=== PATIENT | male | born 1975 | race Caucasian/White ===

== ENCOUNTER 2017-01-19 13:45 | Emergency (ER) | payer BC ==
[2017-01-19] MEDS ORDERED: Aspirin Low Dose CHEW TAB* 81 MG PO ONE (14:59)
--- NOTE | 2017-01-19 15:10 | ED ---
HPI Chest Pain - HPI Summary HPI Summary: 41 yo M presents by private car to ED for chest pain that started at rest at work today at approx 10 or 11am. 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 States the pain feels like "burning", "like a coal" in his chest. He felt a little dizzy with the pain, felt "strange", a little SOB. + nausea, no V, no diaphoresis. Pt states he is "super stressed" at home and work (has a 3 mo old daughter, first child and he and his are very stressed with this). Saw his PCP for anxiety and stress last week. Pt states he is still in pain now. Pain does not radiate. Rates it a "4". States it feels different than his usual reflux. States he also had a "buzzing" sensation in his chest that is now resolved. Cardiac risk factors: former smoker (on chantix now), neg HTN, neg DM, does not know his lipid status, no CAD in parents. Meds Wellbutrin, protonix and chantix. PMH: depression, GERD PSH hernia, wisdom teeth; Fam hx both parents alive and well. Mother with mental illnes, father with depression. Marjorie Tovar NP is his PCP. - History of Current Complaint Chief Complaint: EDChestPainROMI Time Seen by Provider: 01/19/17 14:39 Hx Obtained From: Patient Onset/Duration: Started Hours Ago, Atraumatic, Still Present Time of Onset: 10:00 Timing: Constant Initial Severity: Moderate Current Severity: Moderate Pain Intensity: 3 Pain Scale Used: 0-10 Numeric Chest Pain Location: Discrete at:, Mid Sternal Chest Pain Radiates: No Character: Burning Aggravating Factor(s): Nothing Alleviating Factor(s): Nothing Associated Signs and Symptoms: Positive: Shortness of Breath, Palpitations - buzzing sensation, Other: - nausea. Negative: Vomiting - Risk Factors AMI/ACS Risk Factors: Smoking - former, on Chantix now - Allergy/Home Medications Allergies/Adverse Reactions: Allergies Allergy/AdvReac Type Severity Reaction Status Date / Time No Known Allergies Allergy Verified 03/03/13 12:26 Home Medications: Home Medications Bupropion XL* [Wellbutrin XL *] 150 mg PO DAILY 01/19/17 [History Confirmed 01/26] Pantoprazole TAB (NF) [Protonix TAB (NF)] 40 mg PO DAILY 01/19/17 [History Confirmed 01/19/17] PMH/Surg Hx/FS Hx/Imm Hx Previously Healthy: No Endocrine/Hematology History: Denies: Hx Diabetes, Hx Systemic Lupus Erythematosus Cardiovascular History: Denies: Hx Congestive Heart Failure, Hx Hypertension GI History: Reports: Hx Gastroesophageal Reflux Disease, Other GI Disorders - reflux History: Denies: Hx Dialysis, Hx Renal Disease Musculoskeletal History: Denies: Hx Rheumatoid Arthritis Neurological History: Reports: Other Neuro Impairments/Disorders - restless leg syndrome Psychiatric History: Reports: Hx Depression - Cancer History Hx Chemotherapy: No - Surgical History Surgery Procedure, Year, and Place: tooth extraction one year ago in 2011; wisdom teeth (all 4) removed 15 years ago in 1995; hernia as a "baby". 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 Negative: Cough Positive: Nausea Musculoskeletal: Negative Skin: Negative Neurological: Negative Psychological: Normal All Other Systems Reviewed And Are Negative: Yes Physical Exam Triage Information Reviewed: Yes Vital Signs On Initial Exam: Initial Vitals Temp Pulse Resp BP Pulse Ox 98.1 F 85 20 134/92 99 01/19/17 14:34 01/19/17 14:34 01/19/17 14:34 01/19/17 14:34 01/19/17 14:34 Vital Signs Reviewed: Yes Appearance: Positive: Well-Nourished, Ill-Appearing - mild, Pain Distress Skin: Positive: Warm, Skin Color Reflects Adequate Perfusion, Diaphoretic Head/Face: Positive: Normal Head/Face Inspection Eyes: Positive: EOMI, Conjunctiva Clear ENT: Positive: Normal ENT inspection Neck: Positive: Supple, Nontender, No Lymphadenopathy Respiratory/Lung Sounds: Positive: Clear to Auscultation, Breath Sounds Present , Other - no resp distress Cardiovascular: Positive: RRR, Pulses are Symmetrical in both Upper and Lower Extremities, S1, S2. Negative: Leg Edema Left, Leg Edema Right Abdomen Description: Positive: Nontender, No Organomegaly, Soft. Negative: Bruit, Distended, Guarding, Hepatomegaly, McBurney's Point Tenderness, Peritoneal Signs, Pulsatile Mass, Splenomegaly Bowel Sounds: Positive: Present Musculoskeletal: Positive: Strength/ROM Intact. Negative: Geraldo Sign Left, Geraldo Sign Right, Edema Left, Edema Right Neurological: Positive: Sensory/Motor Intact, Alert, Oriented to Person Place, Time, Facial Symmetry, Speech Normal Diagnostics - Vital Signs Vital Signs Temp Pulse Resp BP Pulse Ox 01/19/17 14:34 98.1 F 85 20 134/92 99 - Laboratory Result Diagrams: 01/19/17 15:20 01/19/17 15:20 Lab Statement: Any lab studies that have been ordered have been reviewed, and results considered in the medical decision making process. - Radiology chest xray Xray Interpretation: No Acute Changes Radiology Interpretation Completed By: Radiologist - EKG 1420 Cardiac Rate: NL EKG Rhythm: Sinus Rhythm ST Segment: Normal Ectopy: None EKG Comparison: No Significant Change Re-Evaluation - Re-Evaluation First Eval Re-Evaluation Time: 17:50 - no chest pain, not diaphoretic. labs pending Change: Improved Chest Pain Course/Dx - Course Course Of Treatment: EKG: taken at 14:20pm, SR 61, nl AVIVCT, nl QTc, nl axis, no acute changes. No significant change c/w 12/27/09. CXR NAD. - Chest Pain Differential Diagnosis/HQI/PQRI: Acute ID, ACS, Angina, Chest Wall, GI Disease, Pulmonary Embolism - Diagnoses Provider Diagnoses: Chest pain, Elevated BP without diagnosis of hypertension Discharge - Discharge Plan Condition: Stable Disposition: OTHER Discharge Disposition Comment: care to Dr. Johnson at change of shift 1700, 01/19 Referrals: Marjorie Tovar NP [Primary Care Provider] -
--- NOTE | 2017-01-19 15:52 | RAD ---
Indication: Chest pain. 2 views of the chest including dual energy PA views demonstrate no mediastinal shift. Heart is of normal size and configuration. Lungs are clear. IMPRESSION: NO ACTIVE CARDIOPULMONARY DISEASE IS NOTED.
[2017-01-19 16:57] LABS: Hematocrit 47 % (42-52); Hemoglobin 16.2 g/dl (14.0-18.0); Mean Corpuscular HGB Conc 34 g/dl (31-36); Mean Corpuscular Hemoglobin 30 pg (27-31); Mean Corpuscular Volume 87 fL (80-94); Mean Platelet Volume 8 um3 (7.4-10.4); Red Blood Count 5.41 10^6/ul (4.0-5.4); Red Cell Distribution Width 13 % (10.5-15); White Blood Count 7.2 10^3/ul (3.5-10.8)
[2017-01-19 17:12] LABS: Albumin 4.3 g/dL (3.2-5.2); BUN/Creatinine Ratio 12.2 (8-20); Calcium 9.2 mg/dL (8.6-10.3); EGFR African American 108.9 (>60); EGFR Non-African American 84.7 (>60); Globulin 2.9 g/dL (2-4); Potassium 3.6 mmol/L (3.5-5.0); Total Bilirubin 0.7 mg/dL (0.2-1.0); Total Protein 7.2 g/dL (6.4-8.9)
[2017-01-19 19:17] VITALS: BP 118/81
--- NOTE | 2017-01-22 12:21 | ED ---
Anette Sparrow Thomas, scribed for Nadeem Johnson MD on 01/19/17 at 1844 . Progress - Progress Note Progress Note: The patient is a sign out from Dr. Langston. The patient is free of chest pain at time of my evaluation. He is diagnosed with anxiety and chest pain, unspecified. He was instructed follow up with cardiology in 2-3 days as well as his primary care provider. Patient is stable. [place] is ruled out by two negative troponins. Course/Dx - Diagnoses Provider Diagnoses: Chest pain, unspecified, Anxiety The documentation as recorded by the Anette decker Thomas accurately reflects the service I personally performed and the decisions made by me, Nadeem Johnson MD.
== END 2017-01-19 19:17 ==
LOC: ED 13:45
DX: R07.9 Chest pain, unspecified (principal); R03.0 Elevated blood-pressure reading, without diagnosis of hypertension; F41.9 Anxiety disorder, unspecified; R06.02 Shortness of breath; R00.2 Palpitations; Z87.891 Personal history of nicotine dependence
CPT/HCPCS: 36415; 71020; 80053; 82550; 82553; 83880; 84484; 85025; 85379; 85610; 85730; 93005; 99283; A9270-GY

== ENCOUNTER 2018-10-07 19:13 | Emergency (ER) | payer BC ==
--- OUTSIDE RECORDS SUMMARY | 2018-10-07 19:36 | XMS REPORT | Continuity of Care Document ---
:1975 External Reference #:[id number] Author Name Shelby Wilkerson M.D. Address [address] [facility] [place] [address] Care Team Providers Name Role Phone Shelby Wilkerson M.D. 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 Primary Care Physician Unavailable Payers Date Identification Numbers Payment Provider Subscriber Effective: 2018 Policy Number: [id number] BC/BS Of EMILY Carolina Alverto PayID: [id number] [address] [address] [place] [address] Problems Active Problems Provider Date Generalized anxiety disorder RENEE eNlson Onset: 10/04/2018 Family History Date Family Member(s) Observation Comments Maternal Grandmother breast cancer Social History Type Date Description Comments Sex Unknown Education Highest level of education completed is a doctorate Living Situation Lives with spouse and daughter Diet Diet is healthy and well balanced Sleep Reports normal sleep activity Pets There are no pets in the home 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 Tobacco Use Start: Unknown Former Cigarette Smoker \\ End: Unknown Smoking Status Reviewed: 10/04/18 Former Cigarette Smoker \\ ETOH Use Social Alcohol ETOH Use Occasional 2-3x week; was up to 4x a night Recreational Drug Use Marijuana Exercise Type/Frequency Exercises sporadically Current Allergies, Adverse Reactions, Alerts Active Allergies Reaction Severity Comments Date NKDA 08/21/2010 Seasonal 08/21/2010 Medications Active Medications SIG Qnty Indications Ordering Provider Date Duloxetine HCL 2 by mouth 60caps F41.1 Danuta Curtis, 07/15/2018 30mg Caps every day Afsusan-Lynette Cherry F34.1 Clonazepam 1 by mouth twice a 45tabs F41.1 RENEE Nelson 02/12/2017 0.5mg Tablets day as needed for anxiety History Medications Proair HFA 2 puffs every 4 8.500gm Marjorie Tovar, 04/11/2018 - hours as needed [facility] 07/14/2018 108(90Base) mcg/Act Aerosol Venlafaxine HCL ER take 3 capsules 90caps F41.1 Marjorie Tovar, 12/06/2017 - daily (maximum [facility] 07/11/2018 37.5mg Caps ER 24HR daily dose 3) F34.1 Pantoprazole Sodium take 1 tablet 30tabs K21.9 Marjorie Tovar, 12/06/2017 - 20mg every day [facility] 10/04/[address] Mclean Continuing take 1 tablet by 30tabs F17.228 Trisha Vieira 11/04/2017 - Month Hugo mouth twice a SUSAN Cortez 07/14/2018 1mg Tablets day Vinay Starting Month starter pack; 1pack F17.228 Trisha Vieira 11/04/2017 - Hugo use according to SUSAN Cortez 11/04/2017 0.5mg X 11 & 1 mg X packaging label 42 Tablets Acetaminophen-Codeine take one by 20tabs J06.9 Trisha Vieira 11/04/2017 - #3 mouth every 6 SUSAN Cortez 07/14/2018 300-30mg Tablets hours as needed for cough. may take 2 as one dose at bedtime. Benzonatate take one by 30caps J06.9 Trisha Vieira 11/04/2017 - 200mg mouth 3 times SUSAN Cortez 07/14/2018 Capsules daily as needed for cough Ventolin HFA take 1-2 puffs 8gm J06.9 Trisha Vieira 11/04/2017 - 108(90Base) inhaled every 4 SUSAN Cortez 07/14/2018 mcg/Act Aerosol hours as needed for wheezing or tightness in the chest Venlafaxine HCL ER 1 by mouth every 30tabs Marjorie Tovar, 04/14/2017 - 150mg day [facility] 12/06/2017 Tablets ER 24HR Desvenlafaxine 1 by mouth every 90tabs F34.1 Marjorie Tovar, 02/12/2017 - Succinate ER day [facility] 04/14/2017 50mg Tablets ER 24HR F41.1 Bupropion HCL ER 1 by mouth 30tabs F41.1 Marjorie Tovar, [facility] 01/15/2017 - (XL) every day 02/12/2017 150mg Tablets ER 24HR F34.1 Chantix Continuing take 1 tablet by 60tabs F17.220 Shelby Wilkerson, 2015 - Month Hugo mouth twice a M.D. 06/04/2016 1mg Tablets day Chantix Starter Pack use as directed 1Month F17.220 Marjorie Tovar, 2014 - [facility] 07/08/2015 Chantix Starter Pack use as directed 1Month 305.1 Marjorie Tovar, 2014 - [facility] 03/04/2015 Azithromycin take 2 tablets 6tabs 786.2 Marjorie Tovar, 07/24/2013 - 250mg by mouth today [facility] 03/04/2015 Tablets then take 1 tablet daily for next 4 days Shara moncada 1-2 tsp q 4h prn 8oz 786.2 Marjorie Tovar, 07/24/2013 - cough [facility] 03/04/2015 100-10mg/5ML Syrup Pantoprazole Sodium take 1 tablet by 30tabs K21.9 Marjorie Tovar, 2012 - mouth once daily [facility] 12/06/2017 40mg Tablets Tizanidine HCL 1 po q hs 30caps 847.1 Marjorie Tovar, 11/30/2012 - 4mg [facility] 07/24/2013 Capsules Lidoderm use on painful 30units 847.1 Marjorie Tovar, 11/30/2012 - 5% Patches area(s) q [facility] 07/24/2013 12hours prn Chantix Starter Pack use as directed 1Month 305.1 Marjorie Tovar, 2012 - [facility] 07/24/2013 Montelukast Sodium take 1 tablet by 30tabs Marjorie Tovar, 08/24/2012 - mouth once daily [facility] 03/04/2015 10mg Tablets Azithromycin take 2 tablets 13tabs 461.0 Marjorie Tovar, 06/15/2012 - 250mg by mouth x 3d [facility] 11/30/2012 Tablets then take 1 tablet daily for next 7days Protonix 1 po qd may fill 30tabs 530.81 Marjorie Tovar, 06/15/2012 - 40mg Tablets with generic [facility] 03/03/2013 DR Guiatuss ac 1-2 tsp q 4h prn 8oz 461.0 Marjorie Tovar, 06/15/2012 - cough [facility] 11/30/2012 100-10mg/5ML Syrup Wellbutrin XL 1 po qd 30units 300.00 Marjorie Tovar, 02/22/2012 - 300mg [facility] 02/23/2012 311 Singulair 1 po qd 30tabs 477.[address] [facility] 02/22/2012 - 10mg Tablets 06/15/2012 Citalopram 1 po qd 30tabs 300.[address] [facility] 02/22/2012 - Hydrobromide 06/15/2012 20mg Tablets Bupropion HCL XL 1 po qd 30tabs 300.[address] [facility] 02/22/2012 - 150mg 06/15/2012 Tablets ER 24HR Flexeril 1 po tid prn 30tabs 848.8 [facility], 09/02/2011 - 10mg Tablets np-C 09/09/2011 Wellbutrin XL 1 po qd 30units 300.00 [facility], 08/19/2011 - 300mg np-C 02/22/2012 311 Note Josemanuel has no RENEE Nelson 11/18/2010 - chronic or acute 08/19/2011 illness and is medically fit to scuba dive Xanax 1-2 by mouth tabs 60tabs F41.[address] [facility] 09/11/2010 - 0.25mg by mouth twice a 11/04/2017 Tablets day as needed Zoloft 300.00 CARMELA NelsonP 08/21/2010 - 08/19/2011 311 Chantix Starter use as directed 1Month 305.1 RENEE Nelson 08/21/2010 - Pack 08/19/2011 Bactroban apply tid to 30mg 478.11 RENEE Nelson 08/21/2010 - 2% affected area for 08/19/2011 Ointment 3-5d Immunizations CPT Code Status Date Vaccine Lot # [id number] Given 03/16/2018 Influenza Vac, Quadrivalent, Slit Virus, Im Vital Signs Date Vital Result Comment 10/04/2018 3:58pm BP Systolic 120 mmHg BP Diastolic 80 mmHg Heart Rate 80 /min Respiratory Rate 15 /min Height 70 inches 5'10" Weight 169.00 lb BMI (Body Mass Index) 24.2 kg/m2 07/15/2018 1:36pm BP Systolic 114 mmHg BP Diastolic 60 mmHg Heart Rate 90 /min Body Temperature 98.1 F Respiratory Rate 16 /min Height 70 inches 5'10" Weight 186.12 lb BMI (Body Mass Index) 26.7 kg/m2 12/06/2017 9:10am BP Systolic 110 mmHg BP Diastolic 68 mmHg Heart Rate 70 /min Body Temperature 98.7 F Respiratory Rate 16 /min Height 70 inches 5'10" Weight 177.38 lb BMI (Body Mass Index) 25.4 kg/m2 11/04/2017 11:40am BP Systolic 120 mmHg BP Diastolic 62 mmHg Heart Rate 70 /min Body Temperature 97.6 F Respiratory Rate 16 /min Height 70 inches 5'10" Weight 177.12 lb BMI (Body Mass Index) 25.4 kg/m2 02/12/2017 4:25pm BP Systolic 110 mmHg BP Diastolic 70 mmHg Heart Rate 68 /min Body Temperature 98.1 F Respiratory Rate 18 /min Height 70 inches 5'10" Weight 189.00 lb BMI (Body Mass Index) 27.1 kg/m2 01/15/2017 1:39pm BP Systolic 110 mmHg BP Diastolic 72 mmHg Heart Rate 60 /min Body Temperature 97.8 F Respiratory Rate 16 /min Height 70 inches 5'10" Weight 187.50 lb BMI (Body Mass Index) 26.9 kg/m2 06/04/2016 12:02pm BP Systolic 120 mmHg BP Diastolic 80 mmHg Heart Rate 68 /min Body Temperature 98.1 F Respiratory Rate 18 /min Weight 192.00 lb 03/04/2015 7:48pm BP Systolic 120 mmHg BP Diastolic 88 mmHg Heart Rate 72 /min Body Temperature 98.6 F Respiratory Rate 18 /min Height 70 inches 5'10" Weight 188.00 lb BMI (Body Mass Index) 27.0 kg/m2 07/24/2013 7:21pm BP Systolic 110 mmHg BP Diastolic 70 mmHg Heart Rate 68 /min Body Temperature 98.3 F Respiratory Rate 18 /min Height 70 inches 5'10" Weight 195.00 lb BMI (Body Mass Index) 28.0 kg/m2 11/30/2012 1:55pm BP Systolic 118 mmHg BP Diastolic 66 mmHg Heart Rate 74 /min Body Temperature 98.0 F Respiratory Rate 18 /min Height 70 inches 5'10" Weight 180.00 lb BMI (Body Mass Index) 25.8 kg/m2 06/15/2012 2:56pm BP Systolic 112 mmHg BP Diastolic 60 mmHg Heart Rate 90 /min Body Temperature 97.7 F Respiratory Rate 16 /min O2 % BldC Oximetry 97 % Height 70 inches 5'10" Weight 193.00 lb BMI (Body Mass Index) 27.7 kg/m2 02/22/2012 7:49pm BP Systolic 110 mmHg BP Diastolic 80 mmHg Heart Rate 68 /min Body Temperature 98.2 F Height 70 inches 5'10" Weight 188.00 lb BMI (Body Mass Index) 27.0 kg/m2 09/02/2011 3:49pm BP Systolic 120 mmHg BP Diastolic 74 mmHg Heart Rate 84 /min Height 70 inches 5'10" Weight 190.00 lb BMI (Body Mass Index) 27.3 kg/m2 08/19/2011 11:02am BP Systolic 120 mmHg BP Diastolic 80 mmHg Heart Rate 64 /min Height 70 inches 5'10" Weight 188.00 lb BMI (Body Mass Index) 27.0 kg/m2 10/08/2010 9:06am BP Systolic 110 mmHg BP Diastolic 70 mmHg Heart Rate 60 /min Body Temperature 98.1 F Height 70 inches 5'10" Weight 185.00 lb BMI (Body Mass Index) 26.5 kg/m2 09/11/2010 9:07am BP Systolic 100 mmHg BP Diastolic 60 mmHg Heart Rate 76 /min Height 70 inches 5'10" Weight 182.00 lb BMI (Body Mass Index) 26.1 kg/m2 08/21/2010 12:49pm BP Systolic 110 mmHg BP Diastolic 78 mmHg Heart Rate 78 /min Body Temperature 98.8 F Respiratory Rate 18 /min Height 70 inches 5'10" Weight 185.00 lb BMI (Body Mass Index) 26.5 kg/m2 Results Test Date Facility Test Result H/L Range Note Laboratory test 01/19/2017 [facility] [place] Troponin I 0.00 ng/mL N <0.04 finding Laboratory test 01/19/2017 [facility] [place] B-Type Natriuretic 11 pg/mL N 1 finding Peptide BNP Creatine Kinase(CK) 73 U/L N 10-223 CBC Auto Diff 01/19/2017 [facility] [place] White Blood Count 7.2 10^3/uL N 3.5-10.8 Red Blood Count 5.41 10^6/uL High 4.0-5.4 Hemoglobin 16.2 g/dL N 14.0-18.0 Hematocrit 47 % N 42-52 Mean Corpuscular Volume 87 fL N 80-94 Mean Corpuscular Hemoglobin 30 pg N 27-31 Mean Corpuscular HGB Conc 34 g/dL N 31-36 Red Cell Distribution Width 13 % N 10.5-15 Platelet Count 242 10^3/uL N 150-450 Mean Platelet Volume 8 um3 N 7.4-10.4 Abs Neutrophils 4.4 10^3/uL N 1.5-7.7 Abs Lymphocytes 1.9 10^3/uL N 1.0-4.8 Abs Monocytes 0.7 10^3/uL N 0-0.8 Abs Eosinophils 0 10^3/uL N 0-0.6 Abs Basophils 0.1 10^3/uL N 0-0.2 Abs Nucleated RBC 0.01 10^3/uL N Granulocyte % 61.3 % N 38-83 Lymphocyte % 26.8 % N 25-47 Monocyte % 10.0 % High 1-9 Eosinophil % 0.7 % N 0-6 Basophil % 1.2 % N 0-2 Nucleated Red Blood Cells % 0.1 N Inr/Protime 01/19/2017 [facility] [place] Inr 0.93 N 0.89-1.11 Laboratory test finding 01/19/2017 [facility] [place] Partial Thrombo 31.6 seconds N 26.0-36.3 Time PTT D Dimer Quantitative < 200 ng/mL N Less Than 230 2 Comp Metabolic Panel 01/19/2017 [facility] [place] Sodium 137 mmol/L N 133-145 Potassium 3.6 mmol/L N 3.5-5.0 Chloride 104 mmol/L N 101-111 Co2 Carbon Dioxide 24 mmol/L N 22-32 Anion Gap 9 mmol/L N 2-11 Glucose 97 mg/dL N 70-100 Blood Urea Nitrogen 12 mg/dL N 6-24 Creatinine 0.98 mg/dL N 0.67-1.17 BUN/Creatinine Ratio 12.2 N 8-20 Calcium 9.2 mg/dL N 8.6-10.3 Total Protein 7.2 g/dL N 6.4-8.9 Albumin 4.3 g/dL N 3.2-5.2 Globulin 2.9 g/dL N 2-4 Albumin/Globulin Ratio 1.5 N 1-3 Total Bilirubin 0.70 mg/dL N 0.2-1.0 Alkaline Phosphatase 54 U/L N 34-104 Alt 35 U/L N 7-52 Ast 26 U/L N 13-39 Egfr Non- 84.7 N >60 Egfr 108.9 N >60 3 Laboratory test finding 01/19/2017 [facility] [place] Troponin I 0.00 ng/mL N <0.04 CKMB 01/19/2017 [facility] CKMB ng/mL 0.5 ng/mL Low 0.6-6.3 1 >100 to <200 pg/mL: likely compensated congestive heart failure (CHF) 200 to 400 pg/mL: likely moderate CHF >400 pg/mL: likely moderate to severe CHF 2 Please note: The following may produce a false positive D Dimer test: - Rheumatoid factor greater than 60 IU/ml - Plasma hemoglobin greater than 0.05 gm/dl - Bilirubin greater than 50 mg/dl - Lipids greater than 1000 mg/dl - FDP greater than 20 ug/ml 3 Because ethnic data is not always readily available, this report includes an eGFR for both -Americans and non- Americans. The National Kidney Disease Education Program (NKDEP) does not endorse the use of the MDRD equation for patients that are not between the ages of 18 and 70, are , have extremes of body size, muscle mass, or nutritional status, or are non- or non-. According to the National Kidney Foundation, irrespective of diagnosis, the stage of the disease is based on the level of kidney function: Stage Description GFR(mL/min/1.73 m(2)) 1 Kidney damage with normal or decreased GFR 90 2 Kidney damage with mild decrease in GFR 60-89 3 Moderate decrease in GFR 30-59 4 Severe decrease in GFR 15-29 5 Kidney failure <15 (or dialysis) Procedures Date Code Description Status 06/15/2012 49102 Pulse Oximetry Completed 08/19/2011 28993 Cryosurgery, Genital Warts Completed 08/19/2011 70121 Destruction Of Flat Warts Or Molluscum Contagiosum, Milia Completed To 15 09/11/2010 46130 Remove Impacted Cerumen Completed Encounters Type Date Location Provider Dx Diagnosis Office Visit 07/15/2018 Main Office RENEE Nelson F41.1 Generalized anxiety 1:30p disorder F34.1 Dysthymic disorder Office Visit 12/06/2017 9:00a Main Office Marjorie Tovar, F17.228 Nicotine GLASS SETTER dependence, chewing tobacco, w oth disorders F41.1 Generalized anxiety disorder F34.1 Dysthymic disorder Office Visit 11/04/2017 11:30a Main Office Trisha OjedaKelli J06.9 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 Marjorie Tovar M25.561 Pain in right knee 11:30a Office GLASS SETTER Office Visit 03/04/2015 Main Office Marjorie Tovar, F17.220 Nicotine 7:30p GLASS SETTER dependence, chewing tobacco, uncomplicated K21.9 Gastro-esophageal reflux disease without esophagitis Office Visit 07/24/2013 7:00p Main Office RENEE Nelson 786.2 Cough Office Visit 11/30/2012 2:00p Main Office RENEE Nelson 847.1 Sprains & Strains Thoracic 530.81 Esophageal Reflux 305.1 Tobacco Use Disorder Office Visit 06/15/2012 3:00p Main Office RENEE Nelson 461.0 Sinusitis Acute Maxillary 530.81 Esophageal Reflux Office Visit 02/22/2012 8:00p Main Office RENEE Nelson 300.00 Anxiety State Unspec 477.9 Rhinitis Allergic Cause Unspec V17.49 Family HX Of Other Cardiovascular Diseases Office Visit 09/02/2011 4:00p Main Office Danuta 848.8 Sprains & Strains [place], Afnp-C Other Spec Sites Office Visit 08/19/2011 11:00a [place] [facility] Danuta 311 Depressive [place], Afnp-C Disorder Not Elsewhere Spec 300.00 Anxiety State Unspec 380.4 Impacted Cerumen 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 Office Marjoriefrederick Tovar, 300.00 Anxiety State GLASS SETTER Unspec 311 Depressive Disorder Not Elsewhere Spec Office Visit 09/11/2010 9:00a [facility] Office Marjorie La, 300.00 Anxiety State GLASS SETTER Unspec 311 Depressive Disorder Not Elsewhere Spec 380.4 Impacted Cerumen Office Visit 08/21/2010 1:00p [facility] Office Marjorie La, 300.00 Anxiety State GLASS SETTER Unspec 311 Depressive Disorder Not Elsewhere Spec 305.1 Tobacco Use Disorder 478.11 Nasal Mucositis (Ulcerative) Plan of Treatment Future Appointment(s):10/07/2018 9:00 am - Shelby Wilkerson M.D. at [facility] [id number] 8:00 am - Shelby Wilkerson M.D. at [facility] [id number]/04/2018 - Shelby Wilkerson M.D.F41.1 Generalized anxiety disorderNew Labs:T4 & TSH, Ordered: Comments:stable on medications ; sees therapist, to see psychiatry this weekFollow up:aifoqpccH95.220 Encounter for screening for lipoid disordersComments:check fasting labK21.9 Gastro-esophageal reflux disease without esophagitisNew Labs:CBC Electronic (a), Ordered: 10/04/18CCS-Comp And Lipid (Fma), Ordered: 10/04/18Comments:The patient was instructed to call if symptoms worsened.G25.81 Restless legs syndromeNew Labs:Iron, Total (Fma), Ordered: 10/04/18Ferritin (Fma/CMC/Centrex), Ordered: 10/04/18B12 (Fma/CMC/ Centrex), Ordered: 10/04/18Comments:check labs, currently using clonazepamFollow up:physical and fasting labsR19.5 Other fecal abnormalitiesNew Labs:Hemoccult-Ict (Fma), Ordered: 10/04/18Comments:check stool cards, Reviewed warning signs and symptoms. Reasons to return to office or proceed to emergency room discussed including but not limited to no improvement or worsening of symptoms. Advised to call the office for any questions or concerns. Patient verbalized understanding.AllComments:Medication Management Patient Understands medications he's taking? Yes No Are there Barriersto Adherence? Yes No Has the patient been asked about herbal supplements and therapies, and OTC meds? Yes No
--- NOTE | 2018-10-07 20:04 | ED ---
Psychiatric Complaint - HPI Summary HPI Summary: This pt is a 42 y/o male presenting to [facility] for a mental health evaluation today. He denies any SI or HI. Pt reports his told him she was afraid of him and she didn't feel safe. Pt states his is staying at a hotel and she left the house with his daughter. Pt notes his won't go back home until pt gets an evaluation. He reports he has had a "growth spurt" and has "become aware of things" he wouldn't in the past. Pt notes his thinks his medications are off, he takes Pristiq and Klonopin. For the past 2 years ever since their daughter was born, pt states his and him have been depressed. Pt saw his psychiatrist, Thanh, today at around 15:00. - History Of Current Complaint Chief Complaint: EDPsychosocial Time Seen by Provider: 10/07/18 19:51 Hx Obtained From: Patient Onset/Duration: Lasting Weeks, Still Present Timing: Weeks Severity Currently: Moderate Character: Depressed Aggravating Factor(s): Nothing Alleviating Factor(s): Nothing Related History: Positive For: Prior Psychiatric Issues Has Suicidal: Denies: Thoughts, With A Plan Has Homicidal: Denies: Thoughts, With A Plan - Allergies/Home Medications Allergies/Adverse Reactions: Allergies Allergy/AdvReac Type Severity Reaction Status Date / Time No Known Allergies Allergy Verified 03/03/13 12:26 Home Medications: Home Medications DULoxetine CAP* [Cymbalta CAP*] 60 mg PO DAILY 10/07/18 [History Confirmed ] clonazePAM [Clonazepam] 0.5 mg PO DAILY PRN 10/07/18 [History Confirmed 10/07/18 ] PMH/Surg Hx/FS Hx/Imm Hx Endocrine/Hematology History: Denies: Hx Diabetes, Hx Systemic Lupus Erythematosus Cardiovascular History: Denies: Hx Congestive Heart Failure, Hx Hypertension GI History: Reports: Hx Gastroesophageal Reflux Disease, Other GI Disorders - reflux History: Denies: Hx Dialysis, Hx Renal Disease Musculoskeletal History: Denies: Hx Rheumatoid Arthritis Neurological History: Reports: Other Neuro Impairments/Disorders - restless leg syndrome Psychiatric History: Reports: Hx Depression - Cancer History Hx Chemotherapy: No - Surgical History Surgery Procedure, Year, and Place: tooth extraction one year ago in 2011; wisdom teeth (all 4) removed 15 years ago in 1995; hernia as a "baby". Infectious Disease History: No Infectious Disease History: Denies: Traveled Outside the [place] in Last 30 Days - Family History Known Family History: Positive: Other - depression, mental illness Negative: Cardiac Disease - Social History Alcohol Use: Rare Substance Use Type: Reports: Marijuana Smoking Status (MU): Former Smoker Review of Systems Negative: Fever Cardiovascular: Negative Respiratory: Negative Gastrointestinal: Negative Positive: Depressed. Negative: Other - NEGATIVE: SI or HI All Other Systems Reviewed And Are Negative: Yes Physical Exam - Summary Physical Exam Summary: VITAL SIGNS: Reviewed. GENERAL: Patient is a well-developed and nourished male who is lying comfortable in the stretcher. Patient is not in any acute respiratory distress. HEAD AND FACE: No signs of trauma. No ecchymosis, hematomas or skull depressions. No sinus tenderness. EYES: PERRLA, EOMI x 2, No injected conjunctiva, no nystagmus. EARS: Hearing grossly intact. Ear canals and tympanic membranes are within normal limits. MOUTH: Oropharynx within normal limits. NECK: Supple, trachea is midline, no adenopathy, no JVD, no carotid bruit, no c- spine tenderness, neck with full ROM. CHEST: Symmetric, no tenderness at palpation LUNGS: Clear to auscultation bilaterally. No wheezing or crackles. CVS: Regular rate and rhythm, S1 and S2 present, no murmurs or gallops appreciated. ABDOMEN: Soft, non-tender. No signs of distention. No rebound no guarding, and no masses palpated. Bowel sounds are normal. EXTREMITIES: FROM in all major joints, no edema, no cyanosis or clubbing. NEURO: Alert and oriented x 3. No acute neurological deficits. Speech is normal and follows commands. SKIN: Dry and warm Triage Information Reviewed: Yes Vital Signs On Initial Exam: Initial Vitals Temp Pulse Resp BP Pulse Ox 98.5 F 98 18 156/91 99 10/07/18 19:21 10/07/18 19:21 10/07/18 19:21 10/07/18 19:21 10/07/18 19:21 Vital Signs Reviewed: Yes Diagnostics - Vital Signs Vital Signs Temp Pulse Resp BP Pulse Ox 10/07/18 19:21 98.5 F 98 18 156/91 99 - Laboratory Lab Statement: Any lab studies that have been ordered have been reviewed, and results considered in the medical decision making process. Re-Evaluation - Re-Evaluation First Eval Re-Evaluation Time: 20:03 Comment: Pt is medically cleared. Course/Dx - Course Assessment/Plan: Pt is a 42 y/o male presenting to [facility] for a mental health evaluation today. He denies any SI or HI. Pt reports his told him she was afraid of him and didn't feel safe. Pt states his is staying at a hotel and she left the house with his daughter. Pt reports his and him have been depressed for the past 2 years after their daughter was born. Pt was medically cleared. He had a mental health evaluation and his case was reviewed by Dr. Diehl, psychiatrist. Per mental health emergency vehicle operations instructor, Dr. Diehl cleared the pt for discharge with dx unspecified anxiety disorder. - Differential Dx/Clinical Impression Provider Diagnosis: Anxiety disorder, unspecified Discharge - Sign-Out/Discharge Documenting (check all that apply): Patient Departure - Discharge home Patient Received Moderate/Deep Sedation with Procedure: No - Discharge Plan Condition: Stable Disposition: HOME Patient Education Materials: Anxiety (ED) Referrals: Shelby Wilkerson MD [Primary Care Provider] - Additional Instructions: Per completion of a mental health evaluation, you are cleared for release and do not require inpatient psychiatric hospitalization at this time. Please go to nearest emergency room or call 911 if safety concerns arise or condition worsens. Important Phone Numbers: [facility] ph:[phone] Suicide Prevention and Crisis Services ph:[phone] National Suicide Prevention Lifeline ph:[phone]- AZZJ (3491) [facility] ph:[phone] Alcoholics Anonymous ph:[phone] [facility] ph:[phone] [place] [employer] ph:[phone] Recommendation: Continue treatment with Dr. Garcias and follow his recommended course of treatment. If needed, returned to emergency room. - Attestation Statements Document Initiated by Scribe: Yes Documenting Scribe: Lakeisha Fuentes Provider For Whom Scribe is Documenting (Include Credential): Ismael Coyne MD Scribe Attestation: I, Lakeisha Fuentes, scribed for Ismael Coyne MD on 10/07/18 at 2117. Status of Scribe Document: Ready
[2018-10-07 21:06] VITALS: BP 125/80
== END 2018-10-07 21:19 | disposition home or self-care (01) ==
LOC: ED 19:13
DX: K21.9 Gastro-esophageal reflux disease without esophagitis (principal); Z79.899 Other long term (current) drug therapy; Z87.891 Personal history of nicotine dependence; F41.9 Anxiety disorder, unspecified
CPT/HCPCS: 99283

== ENCOUNTER 2019-01-17 03:30 | Emergency (ER) | payer BC ==
--- NOTE | 2019-01-17 04:15 | ED ---
Psychiatric Complaint - HPI Summary HPI Summary: Pt is a 43 y/o M presenting to the ED with a chief complaint of not sleeping. He states he has recently been extremely stressed with a recent divorce, new child, trouble at work, and recently decreasing the amount of alcohol he's drank in the past 6 months. He has not slept at all over the past 48 hours, despite using his prescribed Klonopin, Effexor, 2-3 beers, and medical marijuana , and was worried that something might be wrong. He notes some palpitations. At this time, pt is refusing mental health eval, stating he would instead like to go home and call his personal psychologist and psychiatrist to follow up with them. - History Of Current Complaint Chief Complaint: EDPsychosocial Time Seen by Provider: 01/17/19 03:50 Accompanied By: alone Hx Obtained From: Patient Onset/Duration: Gradual Onset, Lasting Days, Still Present Timing: Days Severity Initially: Moderate Severity Currently: Moderate Aggravating Factor(s): Recent Stress Alleviating Factor(s): Nothing Associated Signs And Symptoms: Positive: Negative Has Suicidal: Denies: Thoughts Has Homicidal: Denies: Thoughts Recent Stressor(s): divorce, new child, problems at work, not sleeping - Allergies/Home Medications Allergies/Adverse Reactions: Allergies Allergy/AdvReac Type Severity Reaction Status Date / Time No Known Allergies Allergy Verified 01/17/19 03:35 PMH/Surg Hx/FS Hx/Imm Hx Previously Healthy: Yes Endocrine/Hematology History: Denies: Hx Diabetes, Hx Systemic Lupus Erythematosus Cardiovascular History: Denies: Hx Congestive Heart Failure, Hx Hypertension GI History: Reports: Hx Gastroesophageal Reflux Disease, Other GI Disorders - reflux History: Denies: Hx Dialysis, Hx Renal Disease Musculoskeletal History: Denies: Hx Rheumatoid Arthritis Neurological History: Reports: Other Neuro Impairments/Disorders - restless leg syndrome Psychiatric History: Reports: Hx Depression Denies: Hx Eating Disorder, Hx of Violent Episodes Against Others - Cancer History Hx Chemotherapy: No - Surgical History Surgery Procedure, Year, and Place: tooth extraction one year ago in 2011; wisdom teeth (all 4) removed 15 years ago in 1995; hernia as a "baby". Infectious Disease History: No Infectious Disease History: Denies: Traveled Outside the [place] in Last 30 Days - Family History Known Family History: Positive: Other - depression, mental illness Negative: Cardiac Disease - Social History Alcohol Use: Weekly Alcohol Amount: drank 6-7 beers/day for 15 yrs. now drinks 2-3 beers/day Hx Substance Use: Yes Substance Use Type: Reports: Marijuana Substance Use Comment - Amount & Last Used: Medical marijuana Hx Tobacco Use: Yes Smoking Status (MU): Former Smoker Review of Systems Positive: Palpitations Negative: Other - SI/HI/hallucinations All Other Systems Reviewed And Are Negative: Yes Physical Exam - Summary Physical Exam Summary: Constitutional: Well-developed, Well-nourished, Alert. (-) Distressed Skin: Warm, Dry HENT: Normocephalic; Atraumatic Eyes: Conjunctiva normal Neck: Musculoskeletal ROM normal neck. (-) JVD, (-) Stridor, (-) Tracheal deviation Cardio: Rhythm regular, rate normal, Heart sounds normal; Intact distal pulses; Radial pulses are 2+ and symmetric. (-) Murmur Pulmonary/Chest wall: Effort normal. (-) Respiratory distress, (-) Wheezes, (-) Rales Abd: Soft, (-) tenderness, (-) Distension, (-) Guarding, (-) Rebound Musculoskeletal: (-) Edema Lymph: (-) Cervical adenopathy Neuro: Alert, Oriented x3 Psych: Mood and affect Normal Triage Information Reviewed: Yes Vital Signs On Initial Exam: Initial Vitals Temp Pulse Resp BP Pulse Ox 97.8 F 102 16 123/88 96 01/17/19 03:32 01/17/19 03:32 01/17/19 03:32 01/17/19 03:32 01/17/19 03:32 Vital Signs Reviewed: Yes Procedures - Sedation Patient Received Moderate/Deep Sedation with Procedure: No Diagnostics - Vital Signs Vital Signs Temp Pulse Resp BP Pulse Ox 01/17/19 03:32 97.8 F 102 16 123/88 96 - Laboratory Lab Statement: Any lab studies that have been ordered have been reviewed, and results considered in the medical decision making process. Course/Dx - Course Course Of Treatment: Patient is here with inability to sleep for the past 48 hours. Patient's never been diagnosed with bipolar disorder does not appear manic on exam here. Patient had no reflex symptoms necessitating emergent hold. Patient was told he needed to undress into blue scrubs and have us hold his possessions for psychiatric evaluation he declined. I did speak to the psychiatry nurse who provided patient with 2 resources for outpatient psychiatry. Patient did not have any symptoms necessitating involuntary hold - Differential Dx/Clinical Impression Provider Diagnosis: Insomnia Discharge ED - Sign-Out/Discharge Documenting (check all that apply): Patient Departure - Discharge Plan Condition: Stable Disposition: HOME Patient Education Materials: Insomnia (ED) Referrals: Shelby Wilkerson MD [Primary Care Provider] - Additional Instructions: Please call your psychologist and psychiatrist today to follow up with them as soon as possible. Use the resources we provided you with on the handwritten paper I gave you today. Return to the emergency department with any thoughts of hurting yourself, hurting others, hallucinations, or if you don't sleep at all over the next 24 hours. - Billing Disposition and Condition Condition: STABLE Disposition: Home - Attestation Statements Document Initiated by Janet: Yes Documenting Scribe: Moriah Pina Provider For Whom Janet is Documenting (Include Credential): Carlin Calzada MD. Scribe Attestation: Moriah Sparrow, dustined for Carlin Calzada MD. on 01/17/19 at 0525. Scribe Documentation Reviewed: Yes Provider Attestation: The documentation as recorded by the Moriah decker accurately reflects the service I personally performed and the decisions made by , Carlin Calzada MD. Status of Scribe Document: Viewed
--- OUTSIDE RECORDS SUMMARY | 2019-01-17 04:26 | XMS REPORT | Continuity of Care Document ---
:1975 External Reference #:[id number] Author Name Ghazala Rossi NP Address [address] [place] [address] Care Team Providers Name Role Phone Shahid Farris (Joseph - Direct) Care Team Information Target Worker - Otolaryngology Shelby Wilkerson M.D. - Family Medicine Care Team Information Target Worker Unavailable Problems Active Problems Provider Date Generalized anxiety disorder RENEE Nelson Onset: 10/04/2018 Social History Type Date Description Comments Sex Unknown Tobacco Use Start: Unknown End: Former Cigarette Smoker \ Unknown Smoking Status Reviewed: 12/20/18 Former Cigarette Smoker \ ETOH Use Social Alcohol ETOH Use Occasional 2-3x week; was up to 4x a night Recreational Drug Use Marijuana Tobacco Use Start: 04/12/98 Currently Chewing Tobacco Allergies, Adverse Reactions, Alerts Active Allergies Reaction Severity Comments Date NKDA 08/21/2010 Seasonal 08/21/2010 Medications Active Medications SIG Qnty Indications Ordering Provider Date Clonazepam 1 by mouth twice 45tabs F41.1 RENEE Nelson 02/12/2017 0.5mg a day as needed Tablets for anxiety Venlafaxine HCL ER take 1 capsules F41.1 Unknown by mouth once 150mg Caps ER 24HR daily Vireo Yellow 2.4mg THC/0.36mg F43.10 Unknown CBD oil History Medications No Active Medications Unknown 12/05/2018 - 12/05/2018 Hydroxyzine HCL take 1/2-1 60tabs R07.9 Ghazala Murrieta 12/05/2018 - 25mg tablet by mouth SUSAN Rossi 12/20/2018 Tablets twice a day Venlafaxine HCL ER 1 by mouth every 30tabs F41.1 Stephania Nelson/26/2019 - day [employer] 11/14/2018 150mg Tablets ER 24HR Duloxetine HCL 1 by mouth every 60caps F41.1 Danuta 07/15/2018 - 30mg day Tushar Curtis 12/05/[address] Cherry F34.1 Immunizations CPT Code Status Date Vaccine Lot # [id number] Given 03/16/2018 Influenza Vac, Quadrivalent, Slit Virus, Im Vital Signs Date Vital Result Comment 12/20/2018 10:11am BP Systolic 110 mmHg BP Diastolic 70 mmHg Heart Rate 72 /min Body Temperature 97.9 F Respiratory Rate 16 /min Weight 155.00 lb 12/05/2018 2:22pm BP Systolic 120 mmHg BP Diastolic 90 mmHg Heart Rate 66 /min Body Temperature 98.1 F Respiratory Rate 16 /min Weight 162.00 lb Results Test Date Facility Test Result H/L Range Note Laboratory test 12/04/2018 [facility] [place] I 0.00 ng/mL <0.04 1 finding CBC Auto Diff 12/04/2018 [facility] [place] White Blood 8.6 10^3/uL Normal 3.5-10.8 Count Red Blood Count 5.31 10^6/uL Normal 4.18-5.48 Hemoglobin 15.9 g/dL Normal 14.0-18.0 Hematocrit 46 % Normal 42-52 Mean Corpuscular Volume 86 fL Normal 80-94 Mean Corpuscular Hemoglobin 30 pg Normal 27-31 Mean Corpuscular HGB Conc 35 g/dL Normal 31-36 Red Cell Distribution Width 14 % Normal 10-15 Platelet Count 245 10^3/uL Normal 150-450 Mean Platelet Volume 7.6 fL Normal 7.4-10.4 Abs Neutrophils 5.6 10^3/uL Normal 1.5-7.7 Abs Lymphocytes 2.2 10^3/uL Normal 1.0-4.8 Abs Monocytes 0.7 10^3/uL Normal 0-0.8 Abs Eosinophils 0.0 10^3/uL Normal 0-0.6 Abs Basophils 0.1 10^3/uL Normal 0-0.2 Abs Nucleated RBC 0.0 10^3/uL Granulocyte % 64.9 % Lymphocyte % 26.1 % Monocyte % 7.8 % Eosinophil % 0.4 % Basophil % 0.8 % Nucleated Red Blood Cells % 0.0 Inr/Protime 12/04/2018 [facility] [place] Inr 1.14 High 0.82-1.09 2 Laboratory test 12/04/2018 [facility] [place] Partial Thrombo 34.2 seconds Normal 26.0- 38.0 finding Time PTT Comp Metabolic Panel 12/04/2018 [facility] [place] Sodium 138 mmol/L Normal 135-145 Potassium 3.8 mmol/L Normal 3.5-5.0 Chloride 103 mmol/L Normal 101-111 Co2 Carbon Dioxide 25 mmol/L Normal 22-32 Anion Gap 10 mmol/L Normal 2-11 Glucose 99 mg/dL Normal 70-100 Blood Urea Nitrogen 23 mg/dL Normal 6-24 Creatinine 0.85 mg/dL Normal 0.67-1.17 BUN/Creatinine Ratio 27.1 High 8-20 Calcium 9.9 mg/dL Normal 8.6-10.3 Total Protein 7.0 g/dL Normal 6.4-8.9 Albumin 4.7 g/dL Normal 3.2-5.2 Globulin 2.3 g/dL Normal 2-4 Albumin/Globulin Ratio 2.0 Normal 1-3 Total Bilirubin 0.50 mg/dL Normal 0.2-1.0 Alkaline Phosphatase 70 U/L Normal 34-104 Alt 20 U/L Normal 7-52 Ast 20 U/L Normal 13-39 Egfr Non- 98.8 >60 Egfr 119.6 >60 3 Laboratory test finding 12/04/2018 [facility] [place] Magnesium 2.2 mg/dL Normal 1.9- 2.7 Troponin I 0.00 ng/mL <0.04 4 Urine Drug SCR ED 12/04/2018 [facility] [place] Urine Amphetamine None Detected None Detect & Pain Clinic Screen Urine Barbiturates Screen None Detected None Detect Urine Benzodiazepine Screen None Detected None Detect Urine Cannabinoids Screen Presumptive Posi <SEE NOTE> Abnormal None Detect 5 Urine Cocaine Screen None Detected None Detect Urine Opiates Screen None Detected None Detect Urine Phencyclidine Screen None Detected None Detect 6 Laboratory test 10/07/2018 [facility]) Serum Iron 160 g/dL High 60-150 7 finding Ferritin 67 ng/mL 22-340 Vitamin B-12 703 pg/mL 230-1050 CBC Electronic Fma 10/07/2018 [facility]) WBC 5.2 x10^3/UL 4.0- 10.0 RBC 5.80 x10^6/UL 3.93-6.00 HGB 17.0 g/dL 12.0-17.0 HCT 50 % 35-50 MCV 85.5 fL 80.0-95.0 MCH 29.3 pg 25.6-32.2 MCHC 34.3 g/dL 32.2-36.0 RDW-CV 12.7 % 11.6-14.4 PLT 251 x10^3/UL 163-400 MPV 9.5 fL 9.4-12.4 Steve# 2.67 x10^3/UL 1.56-6.13 Lymph# 1.96 x10^3/UL 1.18-3.74 [place]# 0.50 x10^3/UL 0.24-0.82 Eos # 0.0 x10^3/UL 0.0-0.5 Baso # 0.05 x10^3/UL 0.01-0.08 Steve% 50.9 % 34.0-70.0 Lymph % 37.5 % 20.0-52.0 [place]% 9.6 % 5.0-12.0 Eos% 0.8 % 0.7-7.0 Baso% 1.0 % 0.1-1.2 Comprehensive Metabolic 10/07/2018 [facility]) Sodium 138 mEq/L 134-149 Prof Potassium 4.5 mEq/L 3.6-5.5 Chloride 99 mEq/L 94-112 Carbon Dioxide 31 mEq/L 21-32 Glucose 91 mg/dL 70-105 BUN 17 mg/dL 6-26 Creatinine 1.0 mg/dL 0.6-1.4 BUN/Creat Ratio 17.0 CALC 8.0-36.0 Calcium 9.2 mg/dL 8.6-10.2 Total Protein 7.5 g/dL 6.4-8.3 Albumin 5.1 g/dL 3.8-5.5 Globulin 2.4 g/dL 2.0-4.8 A/G Ratio 2.1 CALC 0.6-2.3 Alk. Phosphatase 77 U/L 22-95 Alt (SGPT) 27 U/L 7-35 Ast (Sgot) 28 U/L 5-34 Total Bilirubin 1.1 mg/dL 0.2-1.3 GFR Non- >60 ml/min/1.73m^ >=60 GFR >60 ml/min/1.73m^ >=60 Lipid Profile 10/07/2018 [facility]) Cholesterol 173 mg/dL 120- 200 Triglycerides 64 mg/dL 30-200 HDL Cholesterol 48 mg/dL 30-70 LDL (Calculated) 112 CALC 0-129 VLDL Cholesterol 13 mg/dL 0-50 HDL Risk Factor 3.6 CALC 0.0-4.4 Laboratory test finding 10/07/2018 [facility]ma) TSH 3.24 mIU/L 0.50-6.00 Free T4 1.34 ng/dL 0.75-1.54 1 Troponin-I testing on Plasma Separator Tubes (PST) has a known false positive rate of 0.20-0.40%. All positive troponins reflex immediately to secondary confirmatory testing. Using the Pinger DxI 800 Access Immunoassay systems, the 99th percentile upper reference limit was demonstrated to be < 0.03 ng/mL. 2 Standard intensity warfarin therapeutic range: 2.0-3.0 High intensity warfarin therapeutic range: 2.5-3.5 3 Because ethnic data is not always [...] 15-29 5 Kidney failure <15 (or dialysis) 4 Troponin-I testing on Plasma Separator Tubes (PST) has a known false positive rate of 0.20-0.40%. All positive troponins reflex immediately to secondary confirmatory testing. Using the Pinger DxI 800 Access Immunoassay systems, the 99th percentile upper reference limit was demonstrated to be < 0.03 ng/mL. 5 Presumptive Positive Presumptive positive results are unconfirmed. 6 The urine specimen was tested at the listed cutoffs: Drug class test level (ng/mL) Amphetamines 500 Barbiturates 200 Benzodiazepine metabolites 200 Cocaine metabolites 150 Cannabinoids 50 Opiates 300 Pcp 25 Specimen was received without chain of custody. Results should be used for medical purposes only. 7 RESULTS VERIFIED BY REPEAT ANALYSIS Procedures Description No Information Available Medical Devices Description No Information Available Encounters Type Date Location Provider Dx Diagnosis Office Visit 12/05/2018 Main Office Ghazala Murrieta F43.10 Post-traumatic stress 2:00p SUSAN Rossi disorder, unspecified F41.1 Generalized anxiety disorder R07.9 Chest pain, unspecified Office Visit 11/15/2018 7:00p Main Office Ghazala Murrieta F43.10 Post- traumatic stress SUSAN Rossi disorder, unspecified F41.1 Generalized anxiety disorder F34.1 Dysthymic disorder K21.9 Gastro-esophageal reflux disease without esophagitis F10.21 Alcohol dependence, in remission Office Visit 11/04/2018 1:00p Main Office RENEE Nelson F41.1 Generalized anxiety disorder F34.1 Dysthymic disorder Office Visit 10/04/2018 4:00p [facility] Office Shelby Wilkerson F41.1 Generalized M.D. anxiety disorder Z13.220 Encounter for screening for lipoid disorders K21.9 Gastro-esophageal reflux disease without esophagitis G25.81 Restless legs syndrome R19.5 Other fecal abnormalities Office Visit 07/15/2018 1:30p Main Office RENEE Nelson F41.1 Generalized anxiety disorder F34.1 Dysthymic disorder Assessments Date Code Description Provider 12/20/2018 F43.10 Post-traumatic stress disorder, unspecified Ghazala Rossi NP 12/20/2018 F41.1 Generalized anxiety disorder Ghazala Rossi NP 12/20/2018 Z63.79 Other stressful life events affecting Ghazala Rossi NP family and household 12/20/2018 Z56.5 Uncongenial work environment Ghazala Rossi NP 12/20/2018 R10.32 Left lower quadrant pain Ghazala Rossi NP 12/20/2018 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 Ghazala Rossi NP 12/05/2018 F43.10 Post-traumatic stress disorder, unspecified Ghazala Rossi NP 12/05/2018 F41.1 Generalized anxiety disorder Ghazala Rsosi NP 12/05/2018 R07.9 Chest pain, unspecified Ghazala Rossi, SUSAN 11/15/2018 F43.10 Post-traumatic stress disorder, unspecified Ghazala Rossi NP 11/15/2018 F41.1 Generalized anxiety disorder Ghazala Rossi, SUSAN 11/15/2018 F34.1 Dysthymic disorder Ghazala Rossi NP 11/15/2018 K21.9 Gastro-esophageal reflux disease without Ghazala Rossi NP esophagitis 11/15/2018 F10.21 Alcohol dependence, in remission Ghazala Rossi, SUSAN 11/04/2018 F41.1 Generalized anxiety disorder Marjorie Tovar, [facility] 11/04/2018 F34.1 Dysthymic disorder Marjorie Tovar, [facility] 10/07/2018 G25.81 Restless legs syndrome Shelby Wilkerson M.D. 10/07/2018 K21.9 Gastro-esophageal reflux disease without Shelby Wilkerson M.D. esophagitis 10/07/2018 F41.1 Generalized anxiety disorder Shelby Wilkerson M.D. 10/07/2018 K62.5 Hemorrhage of anus and rectum Shelby Wilkerson M.D. 10/04/2018 F41.1 Generalized anxiety disorder Shebly Wilkerson M.D. 10/04/2018 Z13.220 Encounter for screening for lipoid Shelby Wilkerson M.D. disorders 10/04/2018 K21.9 Gastro-esophageal reflux disease without Shelby Wilkerson M.D. esophagitis 10/04/2018 G25.81 Restless legs syndrome Shelby Wilkerson M.D. 10/04/2018 R19.5 Other fecal abnormalities Shelby Wilkerson M.D. 07/15/2018 F41.1 Generalized anxiety disorder RENEE Nelson 07/15/2018 F34.1 Dysthymic disorder RENEE Nelson Plan of Treatment Future Appointment(s):02/06/2019 2:00 pm - Ghazala Rossi NP at Main Ssbxcd5401/17/2019 3:20 pm - Shelby Wilkerson M.D. at [facility] Ngdgkc9912/20/2018 - Ghazala Rossi NPF43.10 Post-traumatic stress disorder, unspecifiedComments :followed by [facility] - THC/CBD oil [id number] Generalized anxiety disorderComments:stable on medications ; sees therapist, sees [id number] Other stressful life events affecting family and hhlitmmqkF85.5 Uncongenial work environmentComments:we will need to discuss this with Dr. Wilkerson as well as the HR department. Since you were working last week, I support you in continuing to work on a medical stand point. We will have you sign releasesto discuss with [facility] HR and determine what they are eiiwnpztegE49.32 Left lower quadrant painComments:will get imaging to determine cause of the pain patient instructed to call back if condition fails to improve or worsens.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Comments:has an appointment with urologyAllComments:Medication Management Patient Understands medications he 's taking? Yes No Are there Barriers to Adherence? Yes No Has the patient been asked about herbal supplements and therapies, andOTC meds? Yes No Care Plan1. Patient has been queried about patient's goals/ preferences and functional/lifestyle goals at relevant visits. If relevant, describe: na2. Treatment goals as explained to the patient: above3. Are there barriers to meeting treatment goals? Yes No If Yes, please describe: disease process, stressful life events 4. Self-Management goals as describedto the patient: Yes NoAs always, we strongly encourage a healthy diet and making physical activity a part of your every day life. If you have questions about how or where to start, please contact the office. Functional Status Description No Information Available Mental Status Description No Information Available Referrals Description No Information Available
--- OUTSIDE RECORDS SUMMARY | 2019-01-17 04:26 | XMS REPORT | Continuity of Care Document ---
:1975 External Reference #:[id number] Author Name Ghazala Rossi NP Address [address] [place] [address] Care Team Providers Name Role Phone Reneegrayson Shahid ([place] - Direct) Care Team Information Operations Vice President [phone] - Otolaryngology Shelby Wilkerson M.D. - Family Medicine Care Team Information Operations Vice President Unavailable Problems Active Problems Provider Date Generalized anxiety disorder RENEE Nelson Onset: 10/04/2018 Social History Type Date Description Comments Sex Unknown Tobacco Use Start: Unknown End: Former Cigarette Smoker \\ Unknown Smoking Status Reviewed: 12/05/18 Former Cigarette Smoker \\ ETOH Use Social Alcohol ETOH Use Occasional 2-3x week; was up to 4x a night Recreational Drug Use Marijuana Tobacco Use Start: 04/12/98 Currently Chewing Tobacco Allergies, Adverse Reactions, Alerts Active Allergies Reaction Severity Comments Date NKDA 08/21/2010 Seasonal 08/21/2010 Medications Active Medications SIG Qnty Indications Ordering Provider Date Hydroxyzine HCL take 1/2-1 tablet 60tabs R07.9 Ghazala Murrieta 12/05/2018 25mg by mouth twice a SUSAN Rossi Tablets day Clonazepam 1 by mouth twice 45tabs F41.1 RENEE Nelson 02/12/2017 0.5mg a day as needed Tablets for anxiety Venlafaxine HCL ER take 1 capsules F41.1 Unknown by mouth once 150mg Caps ER 24HR daily Vireo Yellow 2.4mg THC/0.36mg F43.10 Unknown CBD oil History Medications No Active Medications Unknown 12/05/2018 - 12/05/2018 Venlafaxine HCL ER 1 by mouth 30tabs F41.1 RENEE Nelson 11/04/2018 - every day 11/14/2018 150mg Tablets ER 24HR Duloxetine HCL 1 by mouth 60caps F41.1 Danuta Hilyaa, 07/15/2018 - 30mg every day Afnp-C 12/05/[address] Cherry F34.1 Immunizations CPT Code Status Date Vaccine Lot # [id number] Given 03/16/2018 Influenza Vac, Quadrivalent, Slit Virus, Im Vital Signs Date Vital Result Comment 12/05/2018 2:22pm BP Systolic 120 mmHg BP Diastolic 90 mmHg Heart Rate 66 /min Body Temperature 98.1 F Respiratory Rate 16 /min Weight 162.00 lb 11/15/2018 7:02pm BP Systolic 100 mmHg BP Diastolic 78 mmHg Heart Rate 90 /min Body Temperature 97.6 F Respiratory Rate 16 /min Height 70 inches 5'10" Weight 162.00 lb BMI (Body Mass Index) 23.2 kg/m2 Results Test Date Facility Test Result H/L Range Note Laboratory test 12/04/2018 [facility] [place] Troponin I 0.00 ng/mL <0.04 1 finding CBC Auto Diff 12/04/2018 [facility] [place] White Blood 8.6 10^3/uL Normal 3.5-10.8 Count [...] Red Blood Cells % 0.0 Inr/Protime 12/04/2018 [facility] [place] Inr 1.14 High 0.82-1.09 2 Laboratory test 12/04/2018 [facility] [place] Partial Thrombo 34.2 seconds Normal 26.0- 38.0 finding Time PTT Comp Metabolic Panel 12/04/2018 [facility] [place] Sodium 138 mmol/L Normal 135-145 Potassium 3.8 [...] 119.6 >60 3 Laboratory test finding 12/04/2018 [facility] [place] Magnesium 2.2 mg/dL Normal 1.9- 2.7 Troponin I 0.00 ng/mL <0.04 4 Urine Drug SCR ED 12/04/2018 [facility] [place] Urine Amphetamine None Detected None Detect & Pain Clinic Screen Urine Barbiturates Screen None Detected None Detect Urine Benzodiazepine Screen None Detected None Detect Urine Cannabinoids Screen Presumptive Posi <SEE NOTE> Abnormal None Detect 5 Urine Cocaine Screen None Detected None Detect Urine Opiates Screen None Detected None Detect Urine Phencyclidine Screen None Detected None Detect 6 Laboratory test 10/07/2018 [facility]) Serum Iron 160 g/dL High 60-150 7 [...] 2.67 x10^3/UL 1.56-6.13 Lymph# 1.96 x10^3/UL 1.18-3.74 Noble# 0.50 x10^3/UL 0.24-0.82 Eos # 0.0 x10^3/UL 0.0-0.5 Baso # 0.05 x10^3/UL 0.01-0.08 Steve% 50.9 % 34.0-70.0 Lymph % 37.5 % 20.0-52.0 Noble% 9.6 % 5.0-12.0 Eos% 0.8 % 0.7-7.0 [...] immediately to secondary confirmatory testing. Using the servtag DxI 800 Access Immunoassay systems, the 99th [...] immediately to secondary confirmatory testing. Using the servtag DxI 800 Access Immunoassay systems, the 99th [...] Date Location Provider Dx Diagnosis Office Visit 11/15/2018 Main Office Ghazala Murrieta F43.10 Post-traumatic stress 7:00p SUSAN Rossi disorder, unspecified F41.1 Generalized anxiety disorder F34.1 Dysthymic disorder K21.9 Gastro-esophageal reflux disease without esophagitis F10.21 Alcohol dependence, in remission Office Visit 11/04/2018 1:00p Main Office RENEE Nelson F41.1 Generalized anxiety disorder F34.1 Dysthymic disorder Office Visit 10/04/2018 4:00p [facility] Office Shelby Wilkerson F41.1 Generalized M.D. anxiety disorder Z13.220 Encounter for screening for lipoid disorders K21.9 Gastro-esophageal reflux disease without esophagitis G25.81 Restless legs syndrome R19.5 Other fecal abnormalities Office Visit 07/15/2018 1:30p Main Office RENEE Neslon F41.1 Generalized anxiety disorder F34.1 Dysthymic disorder Assessments Date Code Description Provider 12/05/2018 F43.10 Post-traumatic stress disorder, unspecified Ghazala Rossi, SUSAN 12/05/2018 F41.1 Generalized anxiety disorder Ghazala Rossi, SUSAN 12/05/2018 R07.9 Chest pain, unspecified Ghazala Rossi, SUSAN 11/15/2018 F43.10 Post-traumatic stress disorder, unspecified Ghazala Rossi, SUSAN 11/15/2018 F41.1 Generalized anxiety disorder Ghazala Rossi NP 11/15/2018 F34.1 Dysthymic disorder Ghazala Rossi NP 11/15/2018 K21.9 Gastro-esophageal reflux disease without Ghazala Rossi , SUSAN esophagitis 11/15/2018 F10.21 Alcohol dependence, in remission Ghazala Rossi NP 11/04/2018 F41.1 Generalized anxiety disorder RENEE Nelson 11/04/2018 F34.1 Dysthymic disorder RENEE Nelson 10/07/2018 G25.81 Restless legs syndrome Shelby Wilkerson M.D. 10/07/2018 K21.9 Gastro-esophageal reflux disease without Shelby Wilkerson M.D. esophagitis 10/07/2018 F41.1 Generalized anxiety disorder Shelby Wilkerson M.D. 10/07/2018 K62.5 Hemorrhage of anus and rectum Shelby Wilkerson M.D. 10/04/2018 F41.1 Generalized anxiety disorder Shelby Wilkerson M.D. 10/04/2018 Z13.220 Encounter for screening for lipoid Shelby Wilkerson M.D. disorders 10/04/2018 K21.9 Gastro-esophageal reflux disease without Shelby Wilkerson M.D. esophagitis 10/04/2018 G25.81 Restless legs syndrome Shelby Wilkerson M.D. 10/04/2018 R19.5 Other fecal abnormalities Shelby Wilkerson M.D. 07/15/2018 F41.1 Generalized anxiety disorder RENEE Nelson 07/15/2018 F34.1 Dysthymic disorder RENEE Nelson Plan of Treatment Future Appointment(s):01/16/2019 2:00 pm - Ghazala Rossi NP at Main Lynrtu1201/03/2019 8:00 am - Shelby Wilkerson M.D. at [facility] Oawbwd6412/05/2018 - Ghazala Rossi NPF43.10 Post-traumatic stress disorder, unspecifiedComments :followed by [facility] - THC/CBD oil [id number] Generalized anxiety disorderComments:stable on medications ; sees therapist, sees [id number] Chest pain, unspecifiedNew Medication:Hydroxyzine HCL 25 mg - take 1/2-1 tablet by mouth twice a dayComments:discussed hydroxyzine vs propranolol, will trial hydroxyzine and if not effective trial propranolol you are going through a lot of big, stressful life events please make sure you are taking care of yourself continue meditating, exercising, going to therapy and following with psychiatristAllComments:Medication Management Patient Understands medications he 's taking? Yes No Are there Barriers to Adherence? Yes No Has the patient been asked about herbal supplements and therapies, andOTC meds? Yes No Care Plan1. Patient has been queried about patient's goals/preferences and functional/lifestyle goals at relevant visits. If relevant, describe: na2. Treatment goals as explained to the patient: above3. Are there barriers to meeting treatment goals? Yes No If Yes, please describe: comorbid condition 4. Self-Management goals as described to the patient: Yes NoAs always, we strongly encourage a healthy diet and making physical activity a part of your every day life. If you have questions about how or where to start, please contact the office. Functional Status Description No Information Available Mental Status Description No Information Available Referrals Description No Information Available
[2019-01-17 04:27] VITALS: BP 0/0
== END 2019-01-17 04:26 | disposition home or self-care (01) ==
LOC: ED 03:30
DX: G47.00 Insomnia, unspecified (principal); K21.9 Gastro-esophageal reflux disease without esophagitis; Z87.891 Personal history of nicotine dependence
CPT/HCPCS: 99282

== ENCOUNTER 2019-03-06 18:14 | Inpatient (IN) | payer BC ==
--- NOTE | 2019-03-06 18:48 | ED ---
Psychiatric Complaint - HPI Summary HPI Summary: This pt is a 43 y/o male presenting to [facility] via police specialist on a 9.41 for increased depression. Per triage note, "Pt. brought here by [employer] after being found tearful at a bar by staff. Pt. was evicted from his home on 01/18 with a restraining order placed on him by his . Pt. has a 2 year old and a that he has been unable to see d/t court order. Court date today was post poned until april without a change in custody." Pt reports he was in a bar drinking alcohol and about to order dinner when his friend called the police on him. Pt states his friend is concerned about him because his friend understood pt was writing a letter to his children, however pt notes he was writing a letter to his corporate attorney. Pt reports he wrote the letter to let his corporate attorney know that his is him from his children and his house. Additionally pt notes he is running out of money and can't continue to pay for his and his 's expenses. Pt states he wants his children to know that whatever happens to him he wants them to know the truth. Denies any PMHx. - History Of Current Complaint Time Seen by Provider: 03/06/19 18:32 Hx Obtained From: Patient, Other: - veterans service officer Onset/Duration: Lasting Days, Still Present Timing: Days Severity Currently: Moderate Character: Depressed Aggravating Factor(s): Recent Stress Alleviating Factor(s): Nothing Associated Signs And Symptoms: Positive: Negative Has Suicidal: Denies: Thoughts, With A Plan Has Homicidal: Denies: Thoughts, With A Plan Recent Stressor(s): Recent restraining order from - Allergies/Home Medications Allergies/Adverse Reactions: Allergies Allergy/AdvReac Type Severity Reaction Status Date / Time No Known Allergies Allergy Verified 01/17/19 03:35 Home Medications: Home Medications Quetiapine Fumarate [Seroquel 50 mg tab] 50 mg PO BEDTIME 03/06/19 [History Confirmed 03/06/19] Venlafaxine ER (NF) [Effexor ER (NF)] 150 mg PO DAILY 03/06/19 [History Confirmed 03/06/19] PMH/Surg Hx/FS Hx/Imm Hx Endocrine/Hematology History: Denies: Hx Diabetes, Hx Systemic Lupus Erythematosus Cardiovascular History: Denies: Hx Congestive Heart Failure, Hx Hypertension GI History: Reports: Hx Gastroesophageal Reflux Disease, Other GI Disorders - reflux History: Denies: Hx Dialysis, Hx Renal Disease Musculoskeletal History: Denies: Hx Rheumatoid Arthritis Neurological History: Reports: Other Neuro Impairments/Disorders - restless leg syndrome Psychiatric History: Reports: Hx Depression Denies: Hx Eating Disorder, Hx of Violent Episodes Against Others - Cancer History Hx Chemotherapy: No - Surgical History Surgery Procedure, Year, and Place: tooth extraction one year ago in 2011; wisdom teeth (all 4) removed 15 years ago in 1995; hernia as a "baby". - Family History Known Family History: Positive: Other - depression, mental illness Negative: Cardiac Disease - Social History Alcohol Use: Weekly Alcohol Amount: drank 6-7 beers/day for 15 yrs. now drinks 2-3 beers/day Hx Substance Use: Yes Substance Use Type: Reports: Marijuana Substance Use Comment - Amount & Last Used: Medical marijuana Hx Tobacco Use: Yes Smoking Status (MU): Former Smoker Review of Systems Negative: Fever ENT: Negative Cardiovascular: Negative Psychological: Other - POSITIVE: tearful Positive: Depressed All Other Systems Reviewed And Are Negative: Yes Physical Exam - Summary Physical Exam Summary: GENERAL: Patient is a well-developed and nourished male who is lying comfortable in the stretcher. Patient is not in any acute respiratory distress. Patient has alcohol in his breath. HEAD AND FACE: No signs of trauma. No ecchymosis, hematomas or skull depressions. No sinus tenderness. EYES: PERRLA, EOMI x 2, No injected conjunctiva, no nystagmus. EARS: Hearing grossly intact. Ear canals and tympanic membranes are within normal limits. MOUTH: Oropharynx within normal limits. NECK: Supple, trachea is midline, no adenopathy, no JVD, no carotid bruit, no c- spine tenderness, neck with full ROM. CHEST: Symmetric, no tenderness at palpation LUNGS: Clear to auscultation bilaterally. No wheezing or crackles. CVS: Regular rate and rhythm, S1 and S2 present, no murmurs or gallops appreciated. ABDOMEN: Soft, non-tender. No signs of distention. No rebound no guarding, and no masses palpated. Bowel sounds are normal. EXTREMITIES: FROM in all major joints, no edema, no cyanosis or clubbing. NEURO: Alert and oriented x 3. No acute neurological deficits. Speech is normal and follows commands. SKIN: Dry and warm Triage Information Reviewed: Yes Vital Signs On Initial Exam: Initial Vitals Temp Pulse Resp BP Pulse Ox 97.9 F 90 18 128/84 99 03/06/19 18:36 03/06/19 18:36 03/06/19 18:36 03/06/19 18:36 03/06/19 18:36 Vital Signs Reviewed: Yes Procedures - Sedation Patient Received Moderate/Deep Sedation with Procedure: No Diagnostics - Laboratory Result Diagrams: 03/06/19 19:08 03/06/19 19:08 Lab Statement: Any lab studies that have been ordered have been reviewed, and results considered in the medical decision making process. Course/Dx - Course Assessment/Plan: Patient is a 43-year-old male reporting that "I do not want to be alive". Patient was brought into the emergency department as a 941 by police officers. Patient's blood alcohol is 217 therefore unable to medically clear this patient at this time. The patient will be medically cleared in approximately 4 hours for mental health evaluation. Patient will be signed out to Dr. Chiu at shift change pending medical clearance and subsequent MHE. - Differential Dx/Clinical Impression Differential Diagnosis/HQI/PQRI: Positive: Alcohol Intoxication, Anxiety, Depression, Suicidal Ideation Provider Diagnosis: Alcohol intoxication Discharge ED - Sign-Out/Discharge Documenting (check all that apply): Sign-Out Patient Signing out patient TO: Edgard Michaels - pending medical clearance and MHE - Discharge Plan Referrals: Shelby Wilkerson MD [Medical Doctor] - - Billing Disposition and Condition Condition: STABLE - Attestation Statements Document Initiated by Scribe: Yes Documenting Scribe: Lakeisha Fuentes Provider For Whom Scribe is Documenting (Include Credential): Michael Ventura MD Scribe Attestation: Lakeisha Sparrow, scribed for Michael Ventura MD on 03/07/19 at 0823. Scribe Documentation Reviewed: Yes Provider Attestation: The documentation as recorded by the scribeLakeisha accurately reflects the service I personally performed and the decisions made by me, Michael Ventura MD Status of Scribe Document: Viewed
--- OUTSIDE RECORDS SUMMARY | 2019-03-06 19:02 | XMS REPORT | Continuity of Care Document ---
:1975 External Reference #:[id number] Author Name Ghazala Rossi NP Address [address] [place] [address] Care Team Providers Name Role Phone Shahid Farris (Howard - Direct) Care Team Information Demolition Engineer - Otolaryngology Shahid Martines MD - Family Care Team Information Demolition Engineer Medicine Problems Active Problems Provider Date Generalized anxiety disorder RENEE Nelson Onset: 10/04/2018 Social History Type Date Description Comments Sex Unknown Tobacco Use Start: Unknown End: Former Cigarette Smoker \\ Unknown Smoking Status Reviewed: 02/06/19 Former Cigarette Smoker \\ ETOH Use Social Alcohol ETOH Use Occasional 2-3x week; was up to 4x a night Recreational Drug Use Marijuana Tobacco Use Start: 04/12/98 Currently Chewing Tobacco Allergies, Adverse Reactions, Alerts Active Allergies Reaction Severity Comments Date NKDA 08/21/2010 Seasonal 08/21/2010 Medications Active Medications SIG Qnty Indications Ordering Provider Date Seroquel 1 tablet a night 30tabs G47.00 Ghazala Murrieta 02/06/2019 25mg Tablets as needed for SUSAN Rossi sleep Venlafaxine HCL ER 3 caps daily for 42caps F41.1 Shahid Gold 01/20/2019 a week, then 2 MD Bobbi 37.5mg Caps ER 24HR caps daily for a week, then one cap daily for a week, then off. Clonazepam 1 by mouth twice 45tabs F41.1 Shahid Gold 02/12/2017 0.5mg a day as needed MD Bobbi Tablets for anxiety Vireo Yellow 2.4mg THC/0.36mg F43.10 Unknown CBD oil History Medications Hydroxyzine HCL take 1/2-1 one 60tabs Ghazala Murrieta 01/20/2019 - 25mg tablet by mouth Rossi, VERMIN EXTERMINATOR 01/20/2019 Tablets twice a day Duloxetine HCL one by mouth daily 60caps Shahid Gold 01/20/2019 - 20mg for 2 weeks MD Bobbi 02/06/[address] Cherry starting in the second week of taper, then one by mouth twice a day thereafter No Active Unknown 12/05/2018 - Medications 12/05/2018 Hydroxyzine HCL take 1/2-1 tablet 60tabs R07.9 Ghazala Glenny 12/05/2018 - 25mg by mouth twice a Rossi, VERMIN EXTERMINATOR 12/20/2018 Tablets day Venlafaxine HCL ER 1 by mouth every 30tabs F41.1 Marjorie Tovar, 11/04/2018 - day [employer] 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 11/14/2018 150mg Tablets ER 24HR Immunizations CPT Code Status Date Vaccine Lot # [id number] Given 01/20/2019 Tdap Tetanus, W Pertussis [id number] Given 01/20/2019 Influenza Vac, Quadrivalent, Slit Virus, Im [id number] Given 03/16/2018 Influenza Vac, Quadrivalent, Slit Virus, Im Vital Signs Date Vital Result Comment 02/06/2019 2:06pm BP Systolic 122 mmHg BP Diastolic 76 mmHg Heart Rate 92 /min Body Temperature 98.2 F Respiratory Rate 16 /min Height 70 inches 5'10" Weight 156.00 lb BMI (Body Mass Index) 22.4 kg/m2 01/20/2019 2:04pm BP Systolic 118 mmHg BP Diastolic 70 mmHg Heart Rate 74 /min Body Temperature 99.0 F Respiratory Rate 16 /min Height 70 inches 5'10" Weight 159.00 lb BMI (Body Mass Index) 22.8 kg/m2 Results Test Date Facility Test Result H/L Range Note Lipid Profile 01/20/2019 [facility] Cholesterol 202 mg/dL High 120-200 Triglycerides 87 mg/dL 30-200 HDL Cholesterol 62 mg/dL 30-70 LDL (Calculated) 123 CALC 0-129 VLDL Cholesterol 17 mg/dL 0-50 HDL Risk Factor 3.3 CALC 0.0-4.4 Laboratory test 01/20/2019 [facility]) TSH 1.30 mIU/L 0.50-6.00 finding Laboratory test 12/04/2018 [facility] Troponin I 0.00 ng/mL <0.04 1 finding CBC Auto Diff 12/04/2018 [facility] White Blood 8.6 Normal 3.5-10.8 Count 10^3/uL Red Blood Count 5.31 10^6/uL Normal 4.18-5.48 [...] Red Blood Cells % 0.0 Inr/Protime 12/04/2018 [facility] Inr 1.14 High 0.82-1.09 2 Laboratory test 12/04/2018 [facility] Partial Thrombo 34.2 seconds Normal 26.0- 38.0 finding Time PTT Comp Metabolic Panel 12/04/2018 [facility] Sodium 138 mmol/L Normal 135-145 Potassium 3.8 [...] 119.6 >60 3 Laboratory test finding 12/04/2018 [facility] Magnesium 2.2 mg/dL Normal 1.9- 2.7 Troponin I 0.00 ng/mL <0.04 4 Urine Drug SCR ED 12/04/2018 [facility] Urine Amphetamine None Detected None Detect & [facility] Screen Urine Barbiturates Screen None Detected None Detect Urine Benzodiazepine Screen None Detected None Detect Urine Cannabinoids Screen Presumptive Posi <SEE NOTE> Abnormal None Detect 5 Urine Cocaine Screen None Detected None Detect Urine Opiates Screen None Detected None Detect Urine Phencyclidine Screen None Detected None Detect 6 Laboratory test 10/07/2018 [facility](a) Serum Iron 160 g/dL High 60-150 7 finding Ferritin 67 ng/mL 22-340 Vitamin B-12 703 pg/mL 230-1050 CBC Electronic Fma 10/07/2018 [facility]ma) WBC 5.2 x10^3/UL 4.0- 10.0 RBC 5.80 x10^6/UL 3.93-6.00 HGB 17.0 g/dL 12.0-17.0 HCT 50 % 35-50 MCV 85.5 fL 80.0-95.0 MCH 29.3 pg 25.6-32.2 MCHC 34.3 g/dL 32.2-36.0 RDW-CV 12.7 % 11.6-14.4 PLT 251 x10^3/UL 163-400 MPV 9.5 fL 9.4-12.4 Steve# 2.67 x10^3/UL 1.56-6.13 Lymph# 1.96 x10^3/UL 1.18-3.74 Patillas# 0.50 x10^3/UL 0.24-0.82 Eos # 0.0 x10^3/UL 0.0-0.5 Baso # 0.05 x10^3/UL 0.01-0.08 Steve% 50.9 % 34.0-70.0 Lymph % 37.5 % 20.0-52.0 [place]% 9.6 % 5.0-12.0 Eos% 0.8 % 0.7-7.0 Baso% 1.0 % 0.1-1.2 Comprehensive Metabolic 10/07/2018 [facility](a) Sodium 138 mEq/L 134-149 Prof Potassium 4.5 [...] >60 ml/min/1.73m^ >=60 Lipid Profile 10/07/2018 [facility](a) Cholesterol 173 mg/dL 120- 200 Triglycerides 64 mg/dL 30-200 HDL Cholesterol 48 mg/dL 30-70 LDL (Calculated) 112 CALC 0-129 VLDL Cholesterol 13 mg/dL 0-50 HDL Risk Factor 3.6 CALC 0.0-4.4 Laboratory test finding 10/07/2018 [facility] Y[facility](a) TSH 3.24 mIU/L 0.50-6.00 Free T4 1.34 ng/dL 0.75-1.54 1 Troponin-I testing on Plasma Separator Tubes (PST) has a known false positive rate of 0.20-0.40%. All positive troponins reflex immediately to secondary confirmatory testing. Using the Continuent Access Immunoassay systems, the 99th percentile upper [...] immediately to secondary confirmatory testing. Using the iHigh DxI 800 Access Immunoassay systems, the 99th [...] Date Location Provider Dx Diagnosis Office Visit 01/20/2019 Main Office Shahid Gold Z00.00 Encntr for general 1:50p MD Bobbi adult medical exam w/o abnormal findings F41.1 Generalized anxiety disorder Z63.79 Other stressful life events affecting family and household Z23 Encounter for immunization Office Visit 12/20/2018 10:00a Main Office Ghazala Murrieta F43.10 Post- traumatic stress Rossi, VERMIN EXTERMINATOR disorder, unspecified F41.1 Generalized anxiety disorder Z63.79 Other stressful life events affecting family and household Z56.5 Uncongenial work environment R10.32 Left lower quadrant pain 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 Office Visit 12/05/2018 2:00p Main Office Ghazala Murrieta F43.10 Post- traumatic stress Rossi, VERMIN EXTERMINATOR disorder, unspecified F41.1 Generalized anxiety disorder R07.9 Chest pain, unspecified Office Visit 11/15/2018 7:00p Main Office Ghazala Murrieta F43.10 Post- traumatic stress Flo, VERMIN EXTERMINATOR disorder, unspecified F41.1 Generalized anxiety disorder F34.1 Dysthymic disorder K21.9 Gastro-esophageal reflux disease without esophagitis F10.21 Alcohol dependence, in remission Office Visit 11/04/2018 1:00p Main Office Marjorie Tovar [facility] F41.1 Generalized anxiety disorder F34.1 Dysthymic disorder Office Visit 10/04/2018 4:00p [facility] [place], F41.1 Generalized M.D. anxiety disorder Z13.220 Encounter for screening for lipoid disorders K21.9 Gastro-esophageal reflux disease without esophagitis G25.81 Restless legs syndrome R19.5 Other fecal abnormalities Assessments Date Code Description Provider 02/06/2019 F41.1 Generalized anxiety disorder Ghazala Rossi NP 02/06/2019 Z63.79 Other stressful life events affecting Ghazala Rossi NP family and household 02/06/2019 Z56.5 Uncongenial work environment Ghazala Rossi NP 02/06/2019 G47.00 Insomnia, unspecified Ghazala Rossi NP 01/20/2019 Z00.00 Encounter for general adult medical Shahid Martines MD examination without abnormal findings 01/20/2019 F41.1 Generalized anxiety disorder Shahid Martines MD 01/20/2019 Z63.79 Other stressful life events affecting Shahid Martines MD family and household 01/20/2019 Z23 Encounter for immunization Shahid Martines MD 12/20/2018 F43.10 Post-traumatic stress disorder, Ghazala Rossi NP unspecified 12/20/2018 F41.1 Generalized anxiety disorder Ghazala Rossi NP 12/20/2018 Z63.79 Other stressful life events affecting Ghazala Rossi NP family and household 12/20/2018 Z56.5 Uncongenial work environment Ghazala Rossi, SUSAN 12/20/2018 R10.32 Left lower quadrant pain Ghazala Rossi, SUSAN 12/20/2018 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 Ghazala Rossi, SUSAN 12/05/2018 F43.10 Post-traumatic stress disorder, Ghazala Rossi, VERMIN EXTERMINATOR unspecified 12/05/2018 F41.1 Generalized anxiety disorder Ghazala Rossi, SUSAN 12/05/2018 R07.9 Chest pain, unspecified Ghazala Rossi, SUSAN 11/15/2018 F43.10 Post-traumatic stress disorder, Ghazala Rossi, VERMIN EXTERMINATOR unspecified 11/15/2018 F41.1 Generalized anxiety disorder Ghazala Rossi, SUSAN 11/15/2018 F34.1 Dysthymic disorder Ghazala Rossi, SUSAN 11/15/2018 K21.9 Gastro-esophageal reflux disease without Ghazala Rossi , SUSAN esophagitis 11/15/2018 F10.21 Alcohol dependence, in remission Ghazala Rossi, SUSAN 11/04/2018 F41.1 Generalized anxiety disorder Marjorie Tovar, [facility] 11/04/2018 F34.1 Dysthymic disorder Marjorie Tovar, [facility] 10/07/2018 G25.81 Restless legs syndrome Shelby Wilkerson [...] R19.5 Other fecal abnormalities Shelby Wilkerson M.D. Plan of Treatment Future Appointment(s):02/22/2019 12:40 pm - Shahid Martines MD at Main Qqtgnr2702/06/2019 - Ghazala Rossi NPF41.1 Generalized anxiety disorderComments:stable on medications ; sees therapist regularly staying on the effexor, not switching to Cymbalta Taking medicine and going to talk therapy can get you started on the road to feeling better. It canalso help you take care of your body and relationships.To help improve your condition:Get enough sleep.Eat healthy foods.Keep a regular daily schedule.Get out of the house every day.Exercise every day.Even a little bit of exercise, such as a 15- minute walk, can help.Stay away from alcohol and street drugs.Talk with family or friends when you feel nervous or frightened.Find out about different types of group activities you can join.Z63.79 Other stressful life events affecting family and householdComments:divorce pending, trying to gain shared custody of 2 year old and positive coping mechanisms - exercise, meditation, has good support system, going to pqakkrhF64.5 Uncongenial work environmentComments: he is 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 going to try seroquel NEEDED for sleep - this causes drowsiness, please be careful, do not drive, do not take with the clonazepam at the same time as they both cause drowsiness. patient instructed to call back if condition fails to improve or worsens.Follow up:2 weeks - with MD Bobbi already scheduledAllComments:Medication Management Patient Understands medications he 's taking? Yes No Are there Barriers to Adherence? Yes No Has the patient been asked about herbal supplements and therapies, andOTC meds? Yes No Care Plan1. Patient has been queried about patient's goals/preferences and functional/ lifestyle goals at relevant visits. If relevant, describe: na2. Treatment goals as explained to the patient: above3. Are there barriers to meeting treatment goals? Yes No If Yes, please describe: psychiatrist left practice - need to establish with a new one 4. Self-Management goals as described to the patient: Yes NoAs always, we strongly encourage a healthy diet and making physical activity a part of your every day life. If you have questions about how or where tostart, please contact the office.Follow up: Annual Due: 01/2020 Last appointment with MD: 01/2019 - MD Bobbi Goals 02/06/2019 - Ghazala Rossi, NPZ63.79 Other stressful life events affecting family and householdreach out to support system - this is just the start of a lot of stress ahead, I want you to get allof your systems in play - exercise, continue meditating, reach out to friends/family, continue therapy, eat healthy foods, get good sleep. Taking care of yourself is very important right now! Functional Status Description No Information Available Mental Status Description No Information Available Referrals Description No Information Available
--- OUTSIDE RECORDS SUMMARY | 2019-03-06 19:03 | XMS REPORT | Continuity of Care Document ---
:1975 External Reference #:[id number] Author Name Shahid Martines MD Address [address] [facility] [place] [address] Care Team Providers Name Role Phone Shahid Farris ([facility] - Direct) Care Team Information Ux Design Lead - Otolaryngology Shelby Wilkerson M.D. - Family Medicine Care Team Information Ux Design Lead Unavailable Problems Active Problems Provider Date Generalized anxiety disorder RENEE Nelson Onset: 10/04/2018 Social History Type Date Description Comments Sex Unknown Tobacco Use Start: Unknown End: Former Cigarette Smoker \\ Unknown Smoking Status Reviewed: 01/20/19 Former Cigarette Smoker \\ ETOH Use Social Alcohol ETOH Use Occasional 2-3x week; was up to 4x a night Recreational Drug Use Marijuana Tobacco Use Start: 04/12/98 Currently Chewing Tobacco Allergies, Adverse Reactions, Alerts Active Allergies Reaction Severity Comments Date NKDA 08/21/2010 Seasonal 08/21/2010 Medications Active Medications SIG Qnty Indications Ordering Date Provider Venlafaxine HCL ER 3 caps daily for a 42caps F41.1 Shahid Gold 01/20/2019 week, then 2 caps MD Bobbi 37.5mg Caps ER 24HR daily for a week, then one cap daily for a week, then off. Duloxetine HCL one by mouth daily 60caps Shahid Gold 01/20/2019 20mg for 2 weeks MD Bobbi Caps DR Cherry starting in the second week of taper, then one by mouth twice a day thereafter Clonazepam 1 by mouth twice a 45tabs F41.1 Marjorie Tovar, 02/12/2017 0.5mg day as needed for MACHINE DEBURRER Tablets anxiety Vireo Yellow 2.4mg THC/0.36mg F43.10 Unknown CBD oil History Medications Hydroxyzine HCL take 1/2-1 one 60tabs Ghazala Glenny 01/20/2019 - 25mg tablet by mouth Rossi, PROCESS CONTROL SUPERVISOR 01/20/2019 Tablets twice a day No Active Medications Unknown 12/05/2018 - 12/05/2018 Hydroxyzine HCL take 1/2-1 60tabs R07.9 Ghazala Glenny 12/05/2018 - 25mg tablet by mouth Rossi, PROCESS CONTROL SUPERVISOR 12/20/2018 Tablets twice a day Venlafaxine HCL ER 1 by mouth 30tabs F41.1 RENEE Nelson 11/04/2018 - every day 11/14/2018 150mg Tablets ER 24HR Immunizations CPT Code Status Date Vaccine Lot # [id number] Given 01/20/2019 Tdap Tetanus, W Pertussis [id number] Given 01/20/2019 Influenza Vac, Quadrivalent, Slit Virus, Im [id number] Given 03/16/2018 Influenza Vac, Quadrivalent, Slit Virus, Im Vital Signs Date Vital Result Comment 01/20/2019 2:04pm BP Systolic 118 mmHg BP Diastolic 70 mmHg Heart Rate 74 /min Body Temperature 99.0 F Respiratory Rate 16 /min Height 70 inches 5'10" Weight 159.00 lb BMI (Body Mass Index) 22.8 kg/m2 12/20/2018 10:11am BP Systolic 110 mmHg BP Diastolic 70 mmHg Heart Rate 72 /min Body Temperature 97.9 F Respiratory Rate 16 /min Weight 155.00 lb Results Test Date Facility Test Result H/L Range Note Laboratory test 01/20/2019 [facility](fma) TSH <pending> 0.5-5.0 finding Laboratory test [place]04[place] [facility] [place] I 0.00 ng/mL <0.04 1 finding CBC Auto Diff 12/04/2018 [facility] [place] White Blood 8.6 10^3/uL Normal 3.5-10.8 Count [...] Red Blood Cells % 0.0 Inr/Protime 12/04/2018 [facility] In[place] 1.14 High 0.82-1.09 2 Laboratory test 12/04/2018 [facility] Partial Thrombo 34.2 seconds Normal 26.0- 38.0 finding Time PTT Comp Metabolic Panel 12/04/2018 [facility] Sodium 138 mmol/L Normal 135-145 Potassium 3.8 [...] 119.6 >60 3 Laboratory test finding 12/04/2018 [facility] Magnesium 2.2 mg/dL Normal 1.9- 2.7 Troponin I 0.00 ng/mL <0.04 4 Urine Drug SCR ED 12/04/2018 [facility] [place]rine Amphetamine None Detected None Detect & Pain Clinic Screen Urine Barbiturates Screen None Detected None Detect Urine Benzodiazepine Screen None Detected None Detect Urine Cannabinoids Screen Presumptive Posi <SEE NOTE> Abnormal None Detect 5 Urine Cocaine Screen None Detected None Detect Urine Opiates Screen None Detected None Detect Urine Phencyclidine Screen None Detected None Detect 6 Laboratory test 10/07/2018 Dash Morillo([facility] [place]) Serum Iron 160 g/dL High 60-150 7 finding Ferritin 67 ng/mL 22-340 Vitamin B-12 703 pg/mL 230-1050 CBC Electronic a 10/07/2018 Dash Morillo([facility]) WBC 5.2 x10^3/UL 4.0- 10.0 RBC 5.80 x10^6/UL 3.93-6.00 HGB 17.0 g/dL 12.0-17.0 HCT 50 % 35-50 MCV 85.5 fL 80.0-95.0 MCH 29.3 pg 25.6-32.2 MCHC 34.3 g/dL 32.2-36.0 RDW-CV 12.7 % 11.6-14.4 PLT 251 x10^3/UL 163-400 MPV 9.5 fL 9.4-12.4 Steve# 2.67 x10^3/UL 1.56-6.13 Lymph# 1.96 x10^3/UL 1.18-3.74 [place]# 0.50 x10^3/UL 0.24-0.82 Eos # 0.0 x10^3/UL 0.0-0.5 Baso # 0.05 x10^3/UL 0.01-0.08 Steve% 50.9 % 34.0-70.0 Lymph % 37.5 % 20.0-52.0 [place]% 9.6 % 5.0-12.0 Eos% 0.8 % 0.7-7.0 Baso% 1.0 % 0.1-1.2 Comprehensive Metabolic 10/07/2018 Dash Yisel([facility]) Sodium 138 mEq/L 134-149 Prof Potassium 4.5 [...] immediately to secondary confirmatory testing. Using the [employer] DxI 800 Access Immunoassay systems, the 99th [...] immediately to secondary confirmatory testing. 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 Office Visit 12/05/2018 2:00p Main Office Ghazala Murrieta F43.10 Post- traumatic stress Rossi, PROCESS CONTROL SUPERVISOR disorder, unspecified F41.1 Generalized anxiety disorder R07.9 Chest pain, unspecified Office Visit 11/15/2018 7:00p Main Office Ghazala Murrieta F43.10 Post- traumatic stress Rossi, PROCESS CONTROL SUPERVISOR disorder, unspecified F41.1 Generalized anxiety disorder F34.1 Dysthymic disorder K21.9 Gastro-esophageal reflux disease without esophagitis F10.21 Alcohol dependence, in remission Office Visit 11/04/2018 1:00p Main Office RENEE Nelson F41.1 Generalized anxiety disorder F34.1 Dysthymic disorder Office Visit 10/04/2018 4:00p [facility] Office Shelby Wilkerson F41.1 Generalized M.D. anxiety disorder Z13.220 Encounter for screening for lipoid disorders K21.9 Gastro-esophageal reflux disease without esophagitis G25.81 Restless legs syndrome R19.5 Other fecal abnormalities Assessments Date Code Description Provider 01/20/2019 Z00.00 Encounter for general adult medical Shahid Martines MD examination without abnormal findings 01/20/2019 F41.1 Generalized anxiety disorder Shahid Martines MD 01/20/2019 Z63.79 Other stressful life events affecting Shahid Martines MD family and household 12/20/2018 F43.10 Post-traumatic stress disorder, Ghazala Rossi, SUSAN unspecified 12/20/2018 F41.1 Generalized anxiety disorder Ghazala Rossi NP 12/20/2018 Z63.79 Other stressful life events affecting Ghazala Rossi NP family and household 12/20/2018 Z56.5 Uncongenial work environment Ghazala Rossi NP 12/20/2018 R10.32 Left lower quadrant pain Ghazala Rossi NP 12/20/2018 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 Ghazala Rossi NP 12/05/2018 F43.10 Post-traumatic stress disorder, Ghazala Rossi, PROCESS CONTROL SUPERVISOR unspecified 12/05/2018 F41.1 Generalized anxiety disorder Ghazala Rossi NP 12/05/2018 R07.9 Chest pain, unspecified Ghazala Rossi, SUSAN 11/15/2018 F43.10 Post-traumatic stress disorder, Ghazala Rossi NP unspecified 11/15/2018 F41.1 Generalized anxiety disorder Ghazala Rossi NP 11/15/2018 F34.1 Dysthymic disorder Ghazala Rossi NP 11/15/2018 K21.9 Gastro-esophageal reflux disease without Ghazala Rossi NP esophagitis 11/15/2018 F10.21 Alcohol dependence, in remission Ghazala Rossi NP 11/04/2018 F41.1 Generalized anxiety disorder Marjorie Tovar, [facility] 11/04/2018 F34.1 Dysthymic disorder Marjorie Tovar, [facility] 10/07/2018 G25.81 Restless legs syndrome Shelby [...] pm - Shahid Martines MD at Main Axwbzm6102/06/2019 2:00 pm - Ghazala Rossi NP at Main Qualtv3601/20/2019 - Shahid Martines MDZ00.00 Encounter for general adult medical examination without abnormal qfduzbleS00.1 Generalized anxiety disorderNew Medication: Venlafaxine HCL ER 37.5 mg - 3 caps daily for a week, then 2 caps daily for a week, then one cap daily for a week, then off.Follow up:one wlnvmF74.79 Other stressful life events affecting family and householdAllComments:Medication Management Patient Understands medications he's taking? Yes No Are there Barriersto Adherence? Yes No Has the patient been asked about herbal supplements and therapies, and OTC meds? Yes No Functional Status Description No Information Available Mental Status Description No Information Available Referrals Description No Information Available
[2019-03-06 19:15] LABS: ABS Basophils 0.1 10^3/ul (0-0.2); ABS Lymphocytes 1.7 10^3/ul (1.0-4.8); ABS Monocytes 0.6 10^3/ul (0-0.8); ABS Neutrophils 4.4 10^3/ul (1.5-7.7); Eosinophil % 0.5 %; Hematocrit 45 % (42-52); Hemoglobin 15.6 g/dL (14.0-18.0); Lymphocyte % 25.1 %; Mean Corpuscular HGB Conc 34 g/dL (31-36); Mean Corpuscular Hemoglobin 30 pg (27-31); Mean Corpuscular Volume 88 fL (80-94); Nucleated Red Blood Cells % 0.1; Platelet Count 238 10^3/uL (150-450); Red Blood Count 5.14 10^6 /uL (4.18-5.48); Red Cell Distribution Width 13 % (10-15); White Blood Count 6.8 10^3/uL (3.5-10.8)
[2019-03-06 19:33] LABS: ALT 18 U/L (7-52); AST 18 U/L (13-39); Albumin 4.4 g/dL (3.2-5.2); Albumin/Globulin Ratio 1.7 (1-3); Alkaline Phosphatase 69 U/L (34-104); Anion Gap 11 mmol/L (2-11); BUN/Creatinine Ratio 15.2 (8-20); Blood Urea Nitrogen 10 mg/dL (6-24); CO2 Carbon Dioxide 23 mmol/L (22-32); Calcium 8.6 mg/dL (8.6-10.3); Chloride 107 mmol/L (101-111); EGFR African American 160.2 (>60); EGFR Non-African American 132.4 (>60); Globulin 2.6 g/dL (2-4); Glucose 94 mg/dL (70-100); Potassium 3.4 mmol/L (3.5-5.0); Sodium 141 mmol/L (135-145)
[2019-03-06 19:56] LABS: Alcohol 217 mg/dL (<10); Salicylate < 2.50 mg/dL (<30)
[2019-03-06 20:08] LABS: Acetaminophen < 15 mcg/mL
[2019-03-06 21:40] LABS: Urine Benzodiazepine Screen None Detected (None Detect); Urine Opiates Screen None Detected (None Detect)
[2019-03-06 21:43] LABS: Urine Appearance Clear; Urine Bilirubin Negative (Negative); Urine Blood Negative (Negative); Urine Color Straw; Urine Glucose Negative (Negative); Urine Ketones Negative (Negative); Urine Nitrite Negative (Negative); Urine Protein Negative (Negative); Urine Specific Gravity 1.004 (1.010-1.030); Urine Urobilinogen Negative (Negative)
--- NOTE | 2019-03-06 22:02 | ED ---
Progress - Progress Note Progress Note: Pt is a signout from Dr. Ventura at 2200 on 03/06/19 pending medical clearance and MHE. Course/Dx - Course Course Of Treatment: Pt is a signout from Dr. Ventura at 2200 on 03/06/19 pending medical clearance and MHE. Pt is placed on a MH Hold, and will be seen in the morning. Pt will be signed out to Dr. Ventura at 0700 on 03/07/19. - Diagnoses Provider Diagnoses: Alcohol intoxication Discharge ED - Sign-Out/Discharge Documenting (check all that apply): Sign-Out Patient, Receiving Sign-Out Signing out patient TO: Michael [facility]ura Receiving patient FROM: Michael [facility]ura - Discharge Plan Referrals: Shelby Wilkerson MD [Medical Doctor] - - Attestation Statements Document Initiated by Janet: Yes Documenting Scribe: Moriah Pina Provider For Whom Janet is Documenting (Include Credential): Edgard Michaels MD. Scribe Attestation: Moriah Sparrow scribed for Egdard Michaels MD. on 03/07/19 at 0541. Scribe Documentation Reviewed: Yes Provider Attestation: The documentation as recorded by the kenishaibeMoriah accurately reflects the service I personally performed and the decisions made by Edgard marsh MD. Status of Scribe Document: Viewed
--- NOTE | 2019-03-07 07:12 | ED ---
Progress - Progress Note Progress Note: The patient is a sign-out from Dr. Edgard Michaels MD, to Dr. Michael Ventura MD, at change of shift at 0700 on 03/07/19, pending mental health hold and disposition. 0950 - Rosaura Kruger from mental health confirms Dr. Rodriguez's, psychiatry, decision for the patient to be admitted to the behavioral unit, diagnosis of bipolar disorder - Consult/PCP Time Called: 00:30 Course/Dx - Course Course Of Treatment: The patient is a sign-out from Dr. Edgard Michaels MD, to Dr. Michael Ventura MD, at change of shift at 0700 on 03/07/19, pending mental health hold and disposition. Dr. Rodriguez, psychiatry, has evaluated the patient and has determined that admission is appropriate. Rosaura Kruger, mental health library customer service clerk, states that the patient is upset with the plan, but he agrees to be moved over to the annex prior to admission. - Diagnoses Provider Diagnoses: Bipolar disorder - Provider Notifications Discussed Care Of Patient With: Rosaura Kruger - mental health library customer service clerk Time Discussed With Above Provider: 09:50 Instructed by Provider To: Other - Rosaura reports that Dr. Rodriguez, psychiatry, has evaluated the patient and has ordered for him to be admitted. Diagnosis of bipolar disorder. Discharge ED - Sign-Out/Discharge Documenting (check all that apply): Patient Departure - Patient will be admitted by mental health staff., Receiving Sign-Out Receiving patient FROM: Edgard Michaels - Patient is a sign-out from Dr. Edgard Michaels MD, at change of shift at 0700 on 03/07/19, pending mental health hold and disposition. - Discharge Plan Condition: Stable Disposition: [facility]IATRIC FAC[facility] [place] - Billing Disposition and Condition Condition: STABLE Disposition: Psychiatric Facility [facility] - Attestation Statements Document Initiated by Scribe: Yes Documenting Scribe: Deisy Levy Provider For Whom Sebiballa is Documenting (Include Credential): Dr. Michael [facility]ura MD Scribe Attestation: Deisy Sparrow, scribed for Dr. Michael Ventura MD on 03/07/19 at 1820. Scribe Documentation Reviewed: Yes Provider Attestation: The documentation as recorded by the Deisy decker accurately reflects the service I personally performed and the decisions made by me, Dr. Michael Ventura MD Status of Scribe Document: Viewed Procedures - Sedation Patient Received Moderate/Deep Sedation with Procedure: No
[2019-03-07] MEDS ORDERED: Acetaminophen TAB* 325 MG PO PRN (09:50)
[2019-03-07] MEDS ORDERED: Al Hydrox/Mg Hydrox/Simet LIQ* 30 ML UDC PO PRN (09:50)
[2019-03-07] MEDS ORDERED: LORazepam TAB(*) 1 MG PO PRN (09:57)
--- NOTE | 2019-03-07 12:34 | HP ---
H&P (Free Text) History and Physical: Justification for admission: Immediate Safety. CC "I lost my family" The patient was brought to [facility] by police after he was drinking at [place] and was found writing a letter to his family that he stated was to correct the record and let his daughters know that he is not the person that their mother describes him to be. 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 He reported that the letter he wrote was not a suicide note. He is upset today because it has been the second time that the Coverage Specialist Rn postponed his hearing and now is scheduled to take place on April 18. The patient reported that his kicked him out of the house and filed a protection order Jan 18 and since that time has been living in rented rooms and hotels. He reported that he doesnt know what to do but thinks that things will get better once the hearing takes place. He denied access to firearms or stockpiles of medications. Admission report indicated that he would disappear for days and impulsively fly out of town. According to ED report patient expressed " I do not want to be alive." He reported poor sleep and no changes in appetite. The patient denied homicidal ideation intent or plan. The patient denied auditory and/ or visual hallucinations. MDD Reported feeling depressed, with having crying spells , interruption of sleep, decreased concentration. Anxiety Denied having symptoms of anxiety such as having times where heart feels that it is beating out of chest , sweaty palms, or shallow breathing. Denied having uncomfortable or intrusive thoughts. Denied feeling restless, high strung, or worrying too much most of the time. Bipolar Patient denied having periods of highs but endorsed periods of lows. Denied symptoms of dontrell such as having many ideas at once. Denied increased talkativeness where no one can interrupt. Denied feeling irritable most of the time while having an persistent abundance of energy most of the day without the use of energy drinks, stimulants, or recreational drug use. Denied an increase in intensity in goal directed activities. Denied having the decreased need to sleep for days , having prolonged elevated mood , or feeling on top of the world. Denied impulsive risky sexual encounters. Denied spending money recklessly , going on spending sprees wiping out savings. He recently spontaneously traveled out of the country. Psychosis Does not endorse hearing things that other people do not hear or seeing things other people do not see. Denied feeling that TV is making references. Denied feeling that people are spying , following , or reading their thoughts. Phobias: Patient denied having excessive fear of a particular thing or situation. Eating disorders: Patient denied having excessive eating habits or feelings of guilt after eating. Denied repeated episodes of self induced vomiting after eating. PTSD Denied flashbacks, nightmares and avoidance of a prior traumatic event. PAST PSYCHIATRIC HISTORY: Prior Diagnosis : Unspecified anxiety disorder, alcohol use disorder History of past Psychiatric Hospitalizations: No prior psychiatric admission. History of past suicide/homicide attempts : Denied past suicide attempts or self injurious behaviors. No history of violence. Outpatient follow-up: Marjorie Nicholas NP and PCP Dr. Martines Medications: Past trials of medications include effexor klonopin, and seroquel. Started effexor in 2017. Guardianship: None. FAMILY HISTORY: - Suicide: Denied family history of suicide. - Mental illness: Mother has Hx of Depression - Substance abuse: Denied substance abuse among family members. SUBSTANCE ABUSE HISTORY: - EtOH: drinks 2-3 beers daily , has had occupational and marital issues as a result of drinking, no DUIs, seizures, DTs. - Tobacco: Smokes 1/2 PPD - Cannabis: uses daily for medical reasons - Heroin: Denied using recently or in the past. - Cocaine: Denied using recently or in the past. - Substance abuse treatment: [facility] Alcohol outpatient services SOCIAL HISTORY: - Denied a history of childhood physical and or sexual abuse Born in [place] and raised by both parents who 10 years ago - Education: PhD No history of special education. 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 - service history: Denied PAST MEDICAL HISTORY: Denied heart disease, diabetes, cancer and/ or other medical conditions. - Allergies: Denied drug or other allergies. Physical Exam: Please see ED note Mental Status Exam on Admission APPEARANCE : 43 year old who appears stated age. Patient is not malodourous, and appears to have fair hygiene and grooming. BEHAVIOR: Cooperative , calm EYE CONTACT: Fair PSYCHOMOTOR ACTIVITY: No psychomotor agitation or retardation. MOVEMENTS: No abnormal movements observed. SPEECH : Normal rate, rhythm, volume and tone. MOOD : "I am sad " AFFECT : Type is depressed, Range is restricted Mood Congruent THOUGHT PROCESS: Formulated and organized in a logical, linear goal directed manner. THOUGHT CONTENT: no delusions, obsessions, phobias or preoccupations. PERCEPTION: No current auditory or visual hallucinations. Doesnt appear to be responding to internal cues. No evidence of depersonalization , de-realization, or illusions SUICIDALITY Suicidal ideation HOMICIDALITY Denied homicidal ideation, intent or plan. Insight/judgment: Poor insight and judgment ORIENTATION: Oriented to self, location, and time. Diagnosis on Admission: Adjustment disorder, unspecified depressive disorder, alcohol induce mood disorder, alcohol use disorder. Assessment: 43 year old with history of alcohol use disorder came to the hospital after crying at the bar wrote a note to his family why he is gone and sent a picture of a knife to his throat to his . Plan #Admit to [facility], Q15 minute observation. Start regular diet. Encourage participation in activities on the milieu. #Patient evaluated in ED and was determined by the emergency room Physician to be medically fit for admission to the [facility]. # Justification for Admission: For immediate safety per outlined in the [facility] Mental Hygiene Code. # The patient requires psychiatric inpatient admission at this time to assure safety, receive treatment and work toward stabilization. # Labs ordered: CBC, CMP, UDS, TSH, HBA1c, TSH, Toxicology screen, Urine analysis, and lipid profile. # EKG ordered for risk of QT prolongation of anti psychotic medication. # MMPI # Given middle age rapid behavioral changes Will rule out other etiologies and order TSH, B12 level, RPR, MRI brain , EEG #Effexor 150mg daily for now to prevent discontinuation syndrome - no manic features present at this time # Start seroquel to 200mg qhs # Patient denied most screening questions for dontrell. Will obtain further information from providers and close contacts. # Collaboration with Social Work # Tobacco use disorder: nicotine supplement offered and put in place. Substance Abuse resources offered and declined. #Goals before discharge include: To eliminate/ reduce suicidal ideation Tentative Discharge: Pending psychiatric stabilization The risks, benefits, and alternative treatment options were discussed as well as the risks of refusing treatment. After this discussion and an acknowledgement of this understanding was made. A risk/ benefit assessment of treatment was considered and discussed with the patient. When comparing the risks of treatment with the dangers of not receiving treatment, the benefits of treatment outweigh the treatment risks at this time. Risks of allergy, suicidal ideation, behavioral changes, dystonia, rashes, electrolyte imbalances, movement disorders, cardiac conduction changes, serotonin syndrome, metabolic risks and NMS were among some of the risks discussed. Sodium 141 mmol/L (135-145) 03/06/19 19:08 Potassium 3.4 mmol/L (3.5-5.0) L 03/06/19 19:08 BUN 10 mg/dL (6-24) 03/06/19 19:08 Creatinine 0.66 mg/dL (0.67-1.17) L 03/06/19 19:08 Calcium 8.6 mg/dL (8.6-10.3) 03/06/19 19:08 AST 18 U/L (13-39) 03/06/19 19:08 ALT 18 U/L (7-52) 03/06/19 19:08 Acetaminophen (Tylenol Tab*) 650 mg PO Q4H PRN PRN Reason: for pain; or Temp >101 F Al Hydrox/Mg Hydrox/Simethicone (Maalox Plus*) 30 ml PO Q4H PRN PRN Reason: INDIGESTION Clonazepam (Klonopin Tab(*)) 0.5 mg PO BID PRN PRN Reason: ANXIETY Nicotine (Nicotine Patch 14 Mg/24 Hr*) 1 patch TRANSDERM DAILY [facility] Nicotine Polacrilex (Nicotine Gum*) 2 mg PO Q2H PRN PRN Reason: CRAVING Pantoprazole Sodium (Protonix Tab*) 40 mg PO DAILY [facility] Pharmacy Profile Note (Nicotine Patch Removal Note*) 1 note FOLLOW UP 0600 [facility] Quetiapine Fumarate (Seroquel Tab*) 200 mg PO BEDTIME [facility] Venlafaxine HCl (Effexor Xr Cap*) 150 mg PO DAILY [facility]
[2019-03-07] MEDS ORDERED: Thiamine TAB* 100 MG TAB PO ONE (15:08)
[2019-03-07] MEDS: Venlafaxine EXT RELEASE CAP* 75 MG PO SCH (16:15)
[2019-03-07] MEDS ORDERED: Nicotine PATCH 14 MG/24 HR* PATCH TRANSDERM SCH (17:00)
[2019-03-07] MEDS ORDERED: QUEtiapine TAB* 25 MG PO SCH (21:00)
[2019-03-07] MEDS: QUEtiapine TAB* 100 MG PO SCH (21:44)
[2019-03-08] MEDS: Pantoprazole TAB * 40 MG TAB PO SCH (08:48)
[2019-03-08] MEDS: Venlafaxine EXT RELEASE CAP* 75 MG PO SCH (08:49)
--- NOTE | 2019-03-08 13:09 | CONS ---
PSYCHOLOGICAL REPORT: DATE OF CONSULT: 03/08/19 DIAGNOSTIC CODE: [id number]. REASON FOR REFERRAL: Josemanuel was referred for testing in order to help clarify diagnostic interest with concerns regarding possible lethality as well as addressing possible manic or hypomanic propensities . TEST ADMINISTERED: Josemanuel completed the [place] Multiphasic Personality Inventory- 2 (MMPI-2) on his first day of admission. He was given feedback regarding test results and individual conversation. RELEVANT HISTORY: Josemanuel is a 43-year-old recently father of 2 young daughters ages 2-1/2 an d 7 weeks. He describes being displaced in his role as a and father immediately after the bi rth of their youngest daughter with his issuing an order of protection against him. His hospita lization was initiated after he had presented at a local tavern and was involved with writing letters to his daughters on laptop when one of the employees began speaking with him and was concerned to th e point of contacting the police who brought him to the hospital for evaluation and subsequent treatm ent. Josemanuel denies any history of violent conduct with his and although seems to acknowledge that the m arriage is failing, is distraught about loss of contact with his children. Apparently, the court aff orded him supervised visitation and it was to occur with his estranged 's sister and mother whom he describes as holding him in contempt. He described these visitations as rather stressful secondar y to their strained relationship and he was very dissatisfied with not being able to see his children by himself. The presenting incident was exacerbated by his frustrations with cancelation of a court date where he was hopeful of reestablishing his contact with his children. Apparently, the court de ferred until the or 2nd week of April before he will have another hearing to address custody ma tters. Currently, Josemanuel is in an Air[employer]nb home in [place] which he describes as quite comfortable and is able to maintain housing there for the foreseeable future. 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 His experience at 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 He also describes working in the public [employer] system before he complete d his PhD in [place] before taking his position at [employer]. He is originally from [place] and describes studying in [place] before beginning his professional career. 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 Josemanuel presents for the clinical interview with a fair affect that varies appropriately with conversati on. He is distraught about being displaced from his role as a father but is adamant about questions regarding safety. He denies having engaged in any historical self-harm nor does he report any harm t o others or intentions of harming others. Although he endorses some difficulty with initiating sleep , he describes getting rebound sleep the following night in a satisfactory fashion. He denies engagi ng in impulsive or risky behaviors, and denies any problems with psychosis. This conversation is eloy ear and coherent and well organized, although there is defensive flavor to his discussion particularl y around the marriage. He denies experiencing any perceptual abnormalities and describes his decisio n to go to the bar after getting bad news from his cinder crusher operator as a poor decision which exacerbated his al ready dysphoric mood. TEST RESULTS: Josemanuel provides a valid account of his experiences on his administration of the MMPI-2, having mild elevations on the 3 emotional duress scales, but scoring in a healthy manner on emotional coping and self-esteem. He does not endorse depression in clinical scales nor does he endorse hypom adina which were of particular interest. He does endorse elevations on the 2 somatic scales which can be reflective of a person who employs repression as a primary emotional coping resource, often resul ting in endorsement of physical difficulties or experiences. Persons who elevate scale 3 in particul ar are often experiencing familial duress, as are people who elevate the paranoia scale as he does. These scales are reflective of interpersonal conflicts often in the family context but are no necessa rily indicative of any psychotic range disturbance. Moreover, he elevates the psychopathic deviate s jacklyn to a moderate degree which may reflect current difficulties with anger management and dysphoria. However, it should be mentioned that Josemanuel denies any history of arrest or prior inpatient hospitali zation. Persons who elevate this scale at times are described as having difficulty maintaining rod al relationships and who at times may hold social conformity in some disdain. IMPRESSION AND RECOMMENDATIONS: Josemanuel's current presentation and difficulties impress as being primar malcolm a reactive problem to his current displacement from his and role as a father with 2 very you ng daughters. It is apparent that he experiences significant depressive symptomatology that perhaps may be exacerbated by drinking at times with some likely proclivities towards any social personality traits. That said, such traits impresses being expressed in prosocial fashions which is reflected in his educational and vocational attainment, meaning that his interest or identification with being ap art from normative means is expressed through his musical interest and vocational interest. Continui ng treatment should assess for any safety concerns, although currently Josemanuel is quite disarming and sp ontaneous in conversation addressing this topic. He is very hopeful of attaining discharge and begin lala to move forward with what is next in his current predicament regarding reestablishing himself in a familial role with his daughters. DIAGNOSTIC IMPRESSION: Supports adjustment disorder with depressed mood with a rule out of major dep ressive disorder, with continued rule out of antisocial personality traits. [id number]/[facility] #: [id number]
--- NOTE | 2019-03-08 14:13 | PN ---
Subjective - Subjective Date of Service: 03/08/19 Service Type: 70213 Hosp care 35 min high complexity Subjective: Nursing Report: Patient was visible on unit, no behavioral incidents. Slept overnight. CC: "I just want to be a good father." Patient was seen and evaluated in the common room. The patient reported that everyone on the unit is treating him well. He explained how he was a "jerk" to the staff in the labor and delivery room. He met with Dr. Grace and discussed the results for the MMPI. He reported having adequate appetite and sleep. The patient reported attending day groups. Per nursing no behavioral issues or overnight events reported. Patient reported that he is tolerating medications without side effects. Objective - General Observations Appearance: Neat Appears Stated Age: Yes Stature: WNL Posture: WNL Eye Contact: Average Behavior/Activity: WNL - Interaction Observations Attitude Towards Examiner: Evasive Stated Mood: Dysphoric Affect: Blunted Speech Pattern/Tone: Clear Thought Process: Coherent Perception: Derealization Thought Content: Self-Deprecatory Hallucination Type: None Delusion Type: None - Cognitive Function Orientation: A&O x 4 Level of Consciousness: Awake Assessment - Assessment Merits Inpatient Hospitalization: For Immediate Safety Clinical Impression: 43 year old with history of alcohol use disorder came to the hospital after crying at the bar wrote a note to his family why he is gone and sent a picture of a knife to his throat to his . Plan - Plan Treatment Plan: Name: CATE ADAMS Birthdate: 1975 [id number] #Q15 minute observation. # The patient requires psychiatric inpatient admission at this time to assure safety, receive treatment and work toward stabilization. # EKG QTc 396 with mild bradycardia # To get collateral from Dr. Shahid Martines his PCP he declined release to speak to Dr. Garcias his psychologist stating that he doesnt have his best interest. # MMPI results show low probability of hypomania and depression and elevation of scale 3 interpersonal relationships and paranoia # Given middle age behavioral changes, will rule out other etiologies and order TSH, B12 level, RPR, MRI brain w/ wo contrast , EEG #Effexor 150mg daily for now to prevent discontinuation syndrome - no manic features present at this time # Continue seroquel to 200mg qhs # Patient denied most screening questions for dontrell. Will obtain further information from providers and close contacts. # Collateral obtained from Rene ochoa [facility] RETURNER who evaluated him 2 weeks ago # Collaboration with Social Work Sodium 141 mmol/L (135-145) 03/06/19 19:08 Potassium 3.4 mmol/L (3.5-5.0) L 03/06/19 19:08 BUN 10 mg/dL (6-24) 03/06/19 19:08 Creatinine 0.66 mg/dL (0.67-1.17) L 03/06/19 19:08 Hemoglobin A1c 5.5 % (4.0-5.6) 03/08/19 07:18 Calcium 8.6 mg/dL (8.6-10.3) 03/06/19 19:08 AST 18 U/L (13-39) 03/06/19 19:08 ALT 18 U/L (7-52) 03/06/19 19:08 Triglycerides 168 mg/dL 03/08/19 07:18 Cholesterol 187 mg/dL 03/08/19 07:18 LDL Cholesterol 102 mg/dL 03/08/19 07:18 Continued Medication Management: Continue Outpt Medication Medications: Current Medications Acetaminophen (Tylenol Tab*) 650 mg PO Q4H PRN PRN Reason: for pain; or Temp >101 F Al Hydrox/Mg Hydrox/Simethicone (Maalox Plus*) 30 ml PO Q4H PRN PRN Reason: INDIGESTION Clonazepam (Klonopin Tab(*)) 0.5 mg PO BID PRN PRN Reason: ANXIETY Nicotine (Nicotine Patch 14 Mg/24 Hr*) 1 patch TRANSDERM 0900 [facility] Nicotine Polacrilex (Nicotine Gum*) 2 mg PO Q2H PRN PRN Reason: CRAVING Pantoprazole Sodium (Protonix Tab*) 40 mg PO DAILY [facility] Last Admin: 03/08/19 08:48 Dose: Not Given Pharmacy Profile Note (Nicotine Patch Removal Note*) 1 note PATCH OFF 2100 [facility] Quetiapine Fumarate (Seroquel Tab*) 200 mg PO BEDTIME [facility] Last Admin: 03/07/19 21:44 Dose: 200 mg Venlafaxine HCl (Effexor Xr Cap*) 150 mg PO DAILY [facility] Last Admin: 03/08/19 08:49 Dose: 150 mg - Discharge Plan Discharge Plan: Inpatient Hospitalization
[2019-03-08] MEDS: Nicotine Patch Removal NOTE PATCH OFF SCH (16:22)
[2019-03-08] MEDS ORDERED: Gadoteridol* (CONTRAST) 279.3 MG/ML 10 ML IV ONE (20:17)
[2019-03-08] MEDS: QUEtiapine TAB* 100 MG PO SCH (20:43)
--- NOTE | 2019-03-08 20:47 | EEG ---
ELECTROENCEPHALOGRAPHY: DATE OF STUDY: 03/08/19 DATE READ: 03/08/19 ORDERED BY: Dr. Shahid Grady. CLINICAL PROBLEM: The patient is a 43-year-old man who was drinking at [facility] on 03/06/19. The patient stated that he verbalized that his children needed to know that he love them and was noted to have scribbled note to his ex- , possible suicide. [place] [facility] In the [place], he was talking to nurses and suddenly he had a change in behavior. He had a demon voice. He was disturbing the nurse. The patient has an order of protection against him to see his who is filing for a divorce. [facility]. This EEG was obtained to evaluate for epileptiform abnormalities or electrographic seizures. DURATION: [id number]. MEDICATIONS: 1. Nicotine patch. 2. Quetiapine. 3. Effexor. 4. Clonazepam. CLINICAL STATE: Awake and drowsy. REPORT: The waking background showed appropriate organization with clearly defined anterior-posterior voltage and frequency gradients. There was a well- defined posterior dominant rhythm of 10 Hz, which was symmetrical and showed normal reactivity. Anteriorly, there was an expected pattern of lower voltage, irregular, mixed faster frequencies. Hyperventilation and photic stimulation were not performed. Single electrode EKG showed a normal sinus rhythm with a rate of 60 beats per minute. Throughout the recording, there were no epileptiform discharges or electrographic seizures. Attenuation of the occipital rhythm accompanied drowsiness. CLINICAL IMPRESSION: This is a normal awake and drowsy EEG. There were no focal or epileptiform abnormalities. [id number]/[facility] #: [id number] [facility] HE[facility] NETWORKDaniella
[2019-03-09] MEDS: Pantoprazole TAB * 40 MG TAB PO SCH (08:36)
[2019-03-09] MEDS: Venlafaxine EXT RELEASE CAP* 75 MG PO SCH (08:36)
[2019-03-09] MEDS: Nicotine PATCH 14 MG/24 HR* PATCH TRANSDERM SCH ×2 (08:37→12:02)
--- NOTE | 2019-03-09 20:26 | PN ---
Subjective - Subjective Date of Service: 03/09/19 Service Type: 73252 Hosp care 25 min moderate complexity Subjective: Josemanuel was in the milieu interacting with male peers happily and appeared to be without any distress. His only complaints was that he was grieving from not seeing his kids. Not any regret form impending divorce or job loss. Had hard time acknowledging his drinking problem. Says he can drink but not get drunk. But at the end verbalized his understanding and willingness to address it. Denies SI, HI or psychosis. Objective - General Observations Appearance: Neat, Well Groomed Appears Stated Age: Yes Stature: WNL Posture: WNL Eye Contact: Average Behavior/Activity: WNL - Interaction Observations Attitude Towards Examiner: Cooperative Stated Mood: Euthymic Affect: Full Speech Pattern/Tone: Clear, Appropriate, Normal Volume Thought Process: Coherent, Goal Directed Perception: WNL Thought Content: WNL Hallucination Type: Denies Delusion Type: Denies - Cognitive Function Orientation: A&O x 4 Level of Consciousness: Awake, Alert, Appropriate Cognition: WNL Estimated Intelligence: Normal Insight: Mostly Blames Others for Problems Judgment Within Normal Limits: No Ability to Make Reasonable Decisions: Moderately Impaired - Medication Compliance Cooperative with Inpatient Medication Regimen: Yes - Group Participation Participates in Group Activities: Yes Assessment - Assessment Merits Inpatient Hospitalization: Consolidate Improvements, For Discharge Planning Clinical Impression: 43 year old with history of alcohol use disorder came to the hospital after crying at the bar wrote a note to his family why he is gone and sent a picture of a knife to his throat to his . Plan - Plan Treatment Plan: Name: JOSEMANUEL ADAMS Birthdate: 1975 [id number] #Q15 minute observation. # The patient requires psychiatric inpatient admission at this time to assure safety, receive treatment and work toward stabilization. # EKG QTc 396 with mild bradycardia # To get collateral from Dr. Shahid Martines his PCP he declined release to speak to Dr. Garcias his psychologist stating that he doesnt have his best interest. # MMPI results show low probability of hypomania and depression and elevation of scale 3 interpersonal relationships and paranoia # Given middle age behavioral changes, will rule out other etiologies and order TSH, B12 level, RPR, MRI brain w/ wo contrast , EEG #Effexor 150mg daily for now to prevent discontinuation syndrome - no manic features present at this time # Continue seroquel to 200mg qhs # Patient denied most screening questions for dontrell. Will obtain further information from providers and close contacts. # Collateral from Rene ochoa UTILITY AIDE that evaluated him 2 weeks ago, not # Collaboration with Social Work Sodium 141 mmol/L (135-145) 03/06/19 19:08 Potassium 3.4 mmol/L (3.5-5.0) L 03/06/19 19:08 BUN 10 mg/dL (6-24) 03/06/19 19:08 Creatinine 0.66 mg/dL (0.67-1.17) L 03/06/19 19:08 Hemoglobin A1c 5.5 % (4.0-5.6) 03/08/19 07:18 Calcium 8.6 mg/dL (8.6-10.3) 03/06/19 19:08 AST 18 U/L (13-39) 03/06/19 19:08 ALT 18 U/L (7-52) 03/06/19 19:08 Triglycerides 168 mg/dL 03/08/19 07:18 Cholesterol 187 mg/dL 03/08/19 07:18 LDL Cholesterol 102 mg/dL 03/08/19 07:18 Continued Medication Management: Continue Outpt Medication Medications: Current Medications Acetaminophen (Tylenol Tab*) 650 mg PO Q4H PRN PRN Reason: for pain; or Temp >101 F Al Hydrox/Mg Hydrox/Simethicone (Maalox Plus*) 30 ml PO Q4H PRN PRN Reason: INDIGESTION Last Admin: 03/09/19 15:14 Dose: 30 ml Clonazepam (Klonopin Tab(*)) 0.5 mg PO BID PRN PRN Reason: ANXIETY Nicotine (Nicotine Patch 14 Mg/24 Hr*) 1 patch TRANSDERM 0900 [facility] Last Admin: 03/09/19 12:02 Dose: 1 patch Nicotine Polacrilex (Nicotine Gum*) 2 mg PO Q2H PRN PRN Reason: CRAVING Pantoprazole Sodium (Protonix Tab*) 40 mg PO DAILY [facility] Last Admin: 03/09/19 08:36 Dose: Not Given Pharmacy Profile Note (Nicotine Patch Removal Note*) 1 note PATCH OFF 2100 [facility] Last Admin: 03/08/19 16:22 Dose: Not Given Quetiapine Fumarate (Seroquel Tab*) 200 mg PO BEDTIME [facility] Last Admin: 03/08/19 20:43 Dose: 200 mg Venlafaxine HCl (Effexor Xr Cap*) 150 mg PO DAILY [facility] Last Admin: 03/09/19 08:36 Dose: 150 mg - Discharge Plan Discharge Plan: Drug/Alcohol Rehab
[2019-03-09] MEDS: QUEtiapine TAB* 100 MG PO SCH (21:29)
[2019-03-09] MEDS: Nicotine Patch Removal NOTE PATCH OFF SCH (21:32)
[2019-03-10] MEDS: Venlafaxine EXT RELEASE CAP* 75 MG PO SCH (08:46)
[2019-03-10] MEDS: Nicotine PATCH 14 MG/24 HR* PATCH TRANSDERM SCH (08:46)
[2019-03-10] MEDS: Pantoprazole TAB * 40 MG TAB PO SCH ×2 (08:47→14:29)
--- NOTE | 2019-03-10 14:16 | PN ---
Subjective - Subjective Date of Service: 03/10/19 Service Type: 93669 Hosp care 25 min moderate complexity Subjective: Patient presents as well groomed, dysphoric with restricted affect. He declines offer of need for [facility] treatment. He states that he does not have either mental illness or substance use problems. He blames estranged for obtaining restraining order and starting divorce proceedings to harm him and hobble his efforts. He believes he is here because he was simply crying to a clinical nursing professor. Patient encouraged to identify his own emotions and came up with grief and anger. He was receptive to suggestion to focus on his own thoughts and emotions and to start reading about cognitive distortions. Objective - General Observations Appearance: Well Groomed Stature: WNL Posture: WNL Eye Contact: Average Behavior/Activity: Slowed - Interaction Observations Attitude Towards Examiner: Cooperative, Defensive Stated Mood: Angry Affect: Restricted Speech Pattern/Tone: Clear, Appropriate, Quiet Volume Thought Process: Circumstantial, Impoverished Perception: WNL Thought Content: Grandiose Thought Process: Lethality: Passive Wish Hallucination Type: Denies Delusion Type: Persecution - Cognitive Function Orientation: A&O x 4 Level of Consciousness: Alert Cognition: WNL Estimated Intelligence: Normal Insight: Mostly Blames Others for Problems Judgment Within Normal Limits: No Ability to Make Reasonable Decisions: Moderately Impaired - Medication Compliance Cooperative with Inpatient Medication Regimen: Yes - Group Participation Participates in Group Activities: Yes Assessment - Assessment Merits Inpatient Hospitalization: For Immediate Safety, For Stabilization Inpatient DSM-V Dx: F10.14 Clinical Impression: 43 year old with history of alcohol use disorder came to the hospital after crying at the bar wrote a note to his family why he is gone and sent a picture of a knife to his throat to his . Plan - Plan Treatment Plan: Name: CATE ADAMS Birthdate: 1975 [id number] #Q15 minute observation. # The patient requires psychiatric inpatient admission at this time to assure safety, receive treatment and work toward stabilization. # EKG QTc 396 with mild bradycardia # To get collateral from Dr. Shahid Martines his PCP he declined release to speak to Dr. Garcias his psychologist stating that he doesnt have his best interest. # MMPI results show low probability of hypomania and depression and elevation of scale 3 interpersonal relationships and paranoia # Given middle age behavioral changes, will rule out other etiologies and order TSH, B12 level, RPR, MRI brain w/ wo contrast , EEG #Effexor 150mg daily for now to prevent discontinuation syndrome - no manic features present at this time # Continue seroquel to 200mg qhs # Patient denied most screening questions for dontrell. Will obtain further information from providers and close contacts. # Collateral from Rene ochoa ANGLE BENDER that evaluated him 2 weeks ago, not # Collaboration with Social Work Sodium 141 mmol/L (135-145) 03/06/19 19:08 Potassium 3.4 mmol/L (3.5-5.0) L 03/06/19 19:08 BUN 10 mg/dL (6-24) 03/06/19 19:08 Creatinine 0.66 mg/dL (0.67-1.17) L 03/06/19 19:08 Hemoglobin A1c 5.5 % (4.0-5.6) 03/08/19 07:18 Calcium 8.6 mg/dL (8.6-10.3) 03/06/19 19:08 AST 18 U/L (13-39) 03/06/19 19:08 ALT 18 U/L (7-52) 03/06/19 19:08 Triglycerides 168 mg/dL 03/08/19 07:18 Cholesterol 187 mg/dL 03/08/19 07:18 LDL Cholesterol 102 mg/dL 03/08/19 07:18 Medications: Current Medications Acetaminophen (Tylenol Tab*) 650 mg PO Q4H PRN PRN Reason: for pain; or Temp >101 F Al Hydrox/Mg Hydrox/Simethicone (Maalox Plus*) 30 ml PO Q4H PRN PRN Reason: INDIGESTION Last Admin: 03/09/19 15:14 Dose: 30 ml Clonazepam (Klonopin Tab(*)) 0.5 mg PO BID PRN PRN Reason: ANXIETY Nicotine (Nicotine Patch 14 Mg/24 Hr*) 1 patch TRANSDERM 0900 [facility] Last Admin: 03/10/19 08:46 Dose: 1 patch Nicotine Polacrilex (Nicotine Gum*) 2 mg PO Q2H PRN PRN Reason: CRAVING Pantoprazole Sodium (Protonix Tab*) 40 mg PO DAILY [facility] Last Admin: 03/10/19 08:47 Dose: Not Given Pharmacy Profile Note (Nicotine Patch Removal Note*) 1 note PATCH OFF 2100 [facility] Last Admin: 03/09/19 21:32 Dose: 1 note Quetiapine Fumarate (Seroquel Tab*) 200 mg PO BEDTIME [facility] Last Admin: 03/09/19 21:29 Dose: 200 mg Venlafaxine HCl (Effexor Xr Cap*) 150 mg PO DAILY [facility] Last Admin: 03/10/19 08:46 Dose: 150 mg - Discharge Plan Discharge Plan: Inpatient Hospitalization
[2019-03-10] MEDS: clonazePAM TAB(*) 0.5 MG PO PRN (16:05)
[2019-03-10] MEDS: Nicotine Patch Removal NOTE PATCH OFF SCH (21:37)
[2019-03-10] MEDS: QUEtiapine TAB* 100 MG PO SCH (21:37)
[2019-03-11] MEDS: Venlafaxine EXT RELEASE CAP* 75 MG PO SCH (08:08)
[2019-03-11] MEDS: Nicotine PATCH 14 MG/24 HR* PATCH TRANSDERM SCH (08:09)
[2019-03-11] MEDS: Pantoprazole TAB * 40 MG TAB PO SCH (08:09)
[2019-03-11] MEDS: clonazePAM TAB(*) 0.5 MG PO PRN ×2 (12:23→20:10)
[2019-03-11] MEDS: Nicotine Patch Removal NOTE PATCH OFF SCH (20:11)
[2019-03-11] MEDS: QUEtiapine TAB* 100 MG PO SCH (21:56)
[2019-03-12] MEDS: Nicotine PATCH 14 MG/24 HR* PATCH TRANSDERM SCH ×2 (07:57→13:22)
[2019-03-12] MEDS: Pantoprazole TAB * 40 MG TAB PO SCH (07:57)
[2019-03-12] MEDS: Venlafaxine EXT RELEASE CAP* 75 MG PO SCH (07:57)
[2019-03-12] MEDS: clonazePAM TAB(*) 0.5 MG PO PRN ×2 (12:26→18:56)
[2019-03-12] MEDS: Nicotine* 2MG (FRUIT FLAVOR) GUM PO PRN ×2 (18:55→20:56)
[2019-03-12] MEDS: QUEtiapine TAB* 100 MG PO SCH (20:55)
[2019-03-13] MEDS: Nicotine Patch Removal NOTE PATCH OFF SCH ×2 (07:23→21:34)
[2019-03-13] MEDS: clonazePAM TAB(*) 0.5 MG PO PRN ×2 (08:37→17:01)
[2019-03-13] MEDS: Pantoprazole TAB * 40 MG TAB PO SCH (08:38)
[2019-03-13] MEDS: Nicotine PATCH 14 MG/24 HR* PATCH TRANSDERM SCH (08:38)
[2019-03-13] MEDS: Venlafaxine EXT RELEASE CAP* 75 MG PO SCH (08:38)
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
[2019-03-13] MEDS: Nicotine* 2MG (FRUIT FLAVOR) GUM PO PRN ×3 (12:33→21:37)
[2019-03-13] MEDS: QUEtiapine TAB* 100 MG PO SCH (21:34)
[2019-03-14 08:47] VITALS: BP 98/67
[2019-03-14] MEDS: Venlafaxine EXT RELEASE CAP* 75 MG PO SCH (08:50)
[2019-03-14] MEDS: Pantoprazole TAB * 40 MG TAB PO SCH (08:50)
[2019-03-14] MEDS: Nicotine PATCH 14 MG/24 HR* PATCH TRANSDERM SCH (08:51)
[2019-03-14] MEDS ORDERED: Disulfiram TAB* 250 MG PO SCH (09:00)
--- NOTE | 2019-03-14 09:42 | DS ---
Subjective - Subjective Service Types: [id number] [facility] Day Mgmt complex over 30 min Discharge Date: 03/14/19 Subjective: CC: " I have a plan to stay sober" Patient looks forward to going to AA meetings and building social network and seeing his children. The patient was seen and evaluated before discharge today. The patient reported having adequate appetite and sleep. The patient reports attending and participating in day groups. Per nursing no behavioral issues or overnight events reported. Patient reported tolerating medications without side effects. Justification for admission: Immediate Safety. CC "I lost my family" The patient was brought to [facility] by police after he was drinking at the [employer] and was found writing a letter to his family that he stated was to correct the record and let his daughters know that he is not the person that their mother describes him to be. 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 He reported that the letter he wrote was not a suicide note. He is upset today because it has been the second time that the [employer] postponed his hearing and now is scheduled to take place on April 18. The patient reported that his kicked him out of the house and filed a protection order Jan 18 and since that time has been living in rented rooms and hotels. He reported that he doesnt know what to do but thinks that things will get better once the hearing takes place. He denied access to firearms or stockpiles of medications. Admission report indicated that he would disappear for days and impulsively fly out of town. According to ED report patient expressed " I do not want to be alive." He reported poor sleep and no changes in appetite. The patient denied homicidal ideation intent or plan. The patient denied auditory and/ or visual hallucinations. MDD Reported feeling depressed, with having crying spells , interruption of sleep, decreased concentration. Anxiety Denied having symptoms of anxiety such as having times where heart feels that it is beating out of chest , sweaty palms, or shallow breathing. Denied having uncomfortable or intrusive thoughts. Denied feeling restless, high strung, or worrying too much most of the time. Bipolar Patient denied having periods of highs but endorsed periods of lows. Denied symptoms of dontrell such as having many ideas at once. Denied increased talkativeness where no one can interrupt. Denied feeling irritable most of the time while having an persistent abundance of energy most of the day without the use of energy drinks, stimulants, or recreational drug use. Denied an increase in intensity in goal directed activities. Denied having the decreased need to sleep for days , having prolonged elevated mood , or feeling on top of the world. Denied impulsive risky sexual encounters. Denied spending money recklessly , going on spending sprees wiping out savings. He recently spontaneously traveled out of the country. Psychosis Does not endorse hearing things that other people do not hear or seeing things other people do not see. Denied feeling that TV is making references. Denied feeling that people are spying , following , or reading their thoughts. Phobias: Patient denied having excessive fear of a particular thing or situation. Eating disorders: Patient denied having excessive eating habits or feelings of guilt after eating. Denied repeated episodes of self induced vomiting after eating. PTSD Denied flashbacks, nightmares and avoidance of a prior traumatic event. PAST PSYCHIATRIC HISTORY: Prior Diagnosis : Unspecified anxiety disorder, alcohol use disorder History of past Psychiatric Hospitalizations: No prior psychiatric admission. History of past suicide/homicide attempts : Denied past suicide attempts or self injurious behaviors. No history of violence. Outpatient follow-up: Marjorie Nicholas NP and PCP Dr. Martines Medications: Past trials of medications include effexor klonopin, and seroquel. Started effexor in 2017. Guardianship: None. FAMILY HISTORY: - Suicide: Denied family history of suicide. - Mental illness: Mother has Hx of Depression - Substance abuse: Denied substance abuse among family members. SUBSTANCE ABUSE HISTORY: - EtOH: drinks 2-3 beers daily , has had occupational and marital issues as a result of drinking, no DUIs, seizures, DTs. - Tobacco: Smokes /2 PPD - Cannabis: uses daily for medical reasons - Heroin: Denied using recently or in the past. - Cocaine: Denied using recently or in the past. - Substance abuse treatment: [facility] Alcohol outpatient services SOCIAL HISTORY: - Denied a history of childhood physical and or sexual abuse Born in [place] and raised by both parents who 10 years ago - Education: PhD No history of special education. 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 - service history: Denied PAST MEDICAL HISTORY: Denied heart disease, diabetes, cancer and/ or other medical conditions. - Allergies: Denied drug or other allergies. Physical Exam: Please see ED note Mental Status Exam on Admission APPEARANCE : 43 year old who appears stated age. Patient is not malodourous, and appears to have fair hygiene and grooming. BEHAVIOR: Cooperative , calm EYE CONTACT: Fair PSYCHOMOTOR ACTIVITY: No psychomotor agitation or retardation. MOVEMENTS: No abnormal movements observed. SPEECH : Normal rate, rhythm, volume and tone. MOOD : "I am sad " AFFECT : Type is depressed, Range is restricted Mood Congruent THOUGHT PROCESS: Formulated and organized in a logical, linear goal directed manner. THOUGHT CONTENT: no delusions, obsessions, phobias or preoccupations. PERCEPTION: No current auditory or visual hallucinations. Doesnt appear to be responding to internal cues. No evidence of depersonalization , de-realization, or illusions SUICIDALITY Suicidal ideation HOMICIDALITY Denied homicidal ideation, intent or plan. Insight/judgment: Poor insight and judgment ORIENTATION: Oriented to self, location, and time. Diagnosis on Admission: Adjustment disorder, unspecified depressive disorder, alcohol induce mood disorder, alcohol use disorder. Diagnosis on Discharge: unspecified depressive disorder, alcohol induce mood disorder, alcohol use disorder. Condition at the time of discharge: At the time of discharge patient showed improvement of sleep and appetite. The patient was not a danger to self or others. The patient denied suicidal ideation, intent or plan. The patient denied homicidal targets, ideation, intent or plan. This patient participated in psychosocial rehabilitation and gained some insight into problems. The patient gained insight into mental illness, triggers, and treatment. The patient took medication as prescribed. The patient denied side effects of medication and objective signs of side effects were not evident. Therapy Resources were offered to the patient. Patient was given a supply of prescriptions at the time of discharge. The patient plans to attend follow up care with the follow up arrangements that were discussed and put in place. Patient was asked to keep appointments as scheduled, take medication as prescribed, have routine follow up care with their primary care physician and refrain from any use of alcohol or drugs. Objective - General Observations Appearance: Neat Appears Stated Age: Yes Stature: WNL Posture: WNL Eye Contact: Average Behavior/Activity: WNL - Interaction Observations Attitude Towards Examiner: Cooperative Stated Mood: Euthymic Affect: Full Speech Pattern/Tone: Clear, Appropriate Thought Process: Coherent Perception: WNL Thought Content: WNL Hallucination Type: None Delusion Type: None - Cognitive Function Orientation: A&O x 4 Level of Consciousness: Awake Cognition: WNL - Medication Compliance Cooperative with Inpatient Medication Regimen: Yes - Group Participation Participates in Group Activities: Yes Treatment Course & Assessment Clinical Course & Impression: Hospital course part A: 43 year old with history of alcohol use disorder came to the hospital after crying at the bar wrote a note to his family why he is gone. Hospital course part B: Labs ordered included CBC, CMP, UDS, TSH, HBA1c, TSH, MRI of Brain w/wo contrast, EEG, Vit B 12, RPR, Toxicology screen, Urine analysis, and lipid profile. Labs were reviewed and did not require the need for further evaluation. Vital signs were monitored during the course of admission. EEG results were normal. See report for more details MRI brain results show venous anomaly involving right frontal lobe. No associated cavernous hemangioma, follow up with radiologist indicated that this is a incidental finding and not pathological and no further management is required. MMPI was ordered and indicated low score for hypomania and depression and elevation of scale 3 interpersonal relationships and paranoia. The patient was admitted to the adult behavioral unit and placed on 15 minute check for safety. At a later time the patient was on Q30 minute observation and staff pass privileges. With those limits being extended, patient was safe on all checks and there were no occurrence of behavioral incidents. The patient did well on the unit and went to groups. Interacted with peers had adequate sleep and regular appetite. Tolerated medication changes without side effects. Group therapy and services were offered. The risks, benefits, and alternative treatment options were discussed as well as of the risks of refusing treatment. Treatment associated risks discussed. After this discussion made an acknowledgement of this understanding. Follow up care appointments were put in place. The importance of monitoring for metabolic changes was discussed and acknowledgement of this understanding was made. The patient was informed not to abruptly stop or start new medications before consulting with a medical professional. Improvements in patient from the time of admission include: Improved affect, sleep and decrease in anxiety. The patient expressed readiness for discharge home. The patient presents with a broader range of affect, and the absence of depressed mood, delusions, perceptual disturbance. The patient denied suicidal and or homicidal ideation intent or plan. Overall, the patient responded well to inpatient treatment as evidenced by their report of strengthening of coping mechanisms, reduced distress, and more positive outlook on circumstances. Of note there was an improvement of recognizing how emotional state can effect mood and behavior. Safety precautions were put in place which included involving the patient to closely monitor for changes in mental state. In addition, implementing follow up care, screening for the need to remove/securing firearms, weapons and stockpile of medications. Patient instructed to immediately call 911 should any safety concerns arise. Patient wished not to have family or friends involved in his care during the course of his hospitalization. He expressed his wish to stay sober and the steps needed to ensure that he refrains from using alcohol. Patient showed improvement of insight into treatment needs. Since hospitalization he increased his support system, addressed alcohol abuse and the ways he plans to remain sober and he improved the way he michi with recent relationship changes. AIMS was performed and insignificant for involuntary movement disorders. The patient was advised of the 24 hour / 7 days a week availability of the emergency room and to call 911 in the event of an emergency such as being suicidal and/ or homicidal. The patient was informed of the contact information for [facility] Services Unit, Suicide Prevention and Crisis Services, National Suicide Prevention Lifeline, [facility], Alcoholics Anonymous, and [facility]. Medications started included resuming effexor 150mg daily for depression and increased seroquel to 200mg qhs for sleep and depression augmentation , and clonazepam 0.5mg PRN for anxiety. Disulfiram 500mg po daily for alcohol use disorder. Nicotine replacement was provided to decrease nicotine cravings. Patient informed of the dangers of smoking and offered nicotine cessation resources and declined. Patient was informed of and offered substance abuse/ Alcohol cessation resources. He plans to follow up at [facility]. He has adequate supply of medications and did not need refills on effexor or clonazepam. The pharmacy was contacted and canceled the order that was sent yesterday for a refill of Effexor. He was instructed about using disulfiram and the interactions and risks. He plans to have his AA sponsor help ensure compliance. Liver enzymes within normal limits. Nicotine replacement was provided to decrease nicotine cravings. Collateral from last provider was obtained. At this time both the patient is eager for discharge and is in agreement with the discharge plan set forth by the patient and treatment team and can safely receive care in the less restrictive outpatient setting. They were advised on how the days following discharge can be a vulnerable period and to look out for warning signs associated with decompensation and progression of mental illness. They were notified of the resources available in the event these situations arise. Patient was not assaultive or a behavioral problem during the course of admission. The patient showed improvement of hygiene and was able to carry out activities of daily living. Patient will be discharged to live at home. Follow up appointment at [facility] and [facility]. Patient informed of follow up appointment times. See more details for follow up care in the discharge plan. Risk factors were mitigated by establishing the patients baseline with previous providers. Implementing precautionary safety measures by screening for access to stockpiles of medications and firearms , providing mental health treatment, offering alcohol abuse resources and treatment, Alcohol abuse therapy groups, stabilization of depressive features, arrangement of outpatient continuation of care, as well as provided a supportive care environment and therapy resources during the course of hospitalization. Safety plan was reviewed and discussed with the patient. Therapy for recent relationship changes. Risk factors: , history of mental illness, Alcohol abuse, Recent relationship changes, limited family social support Protective factors: Currently no suicidal ideation, intent or plan. No suicide attempts in the last year. Has children.. No history of service. Currently no feelings of hopelessness, not in an occupation of social isolation , doesnt have multiple medical conditions, no family history of suicide, doesn t have access to firearms. Doesnt have command hallucinations and or psychotic features at this time. No current illicit substance abuse. Not an anniversary of a loss of a loved one. Currently future orientated. Patient engaged in treatment and compliant with medication. No identified barriers to treatment. Patient building support network via AA meetings and identified a sponsor. Sodium 141 mmol/L (135-145) 03/06/19 19:08 Potassium 3.4 mmol/L (3.5-5.0) L 03/06/19 19:08 BUN 10 mg/dL (6-24) 03/06/19 19:08 Creatinine 0.66 mg/dL (0.67-1.17) L 03/06/19 19:08 Hemoglobin A1c 5.5 % (4.0-5.6) 03/08/19 07:18 Calcium 8.6 mg/dL (8.6-10.3) 03/06/19 19:08 AST 18 U/L (13-39) 03/06/19 19:08 ALT 18 U/L (7-52) 03/06/19 19:08 Triglycerides 168 mg/dL 03/08/19 07:18 Cholesterol 187 mg/dL 03/08/19 07:18 LDL Cholesterol 102 mg/dL 03/08/19 07:18 Merits Inpatient Hospitalization: No Clear for Discharge: Adequate Clinical Respons Inpatient DSM-V Dx: F10.14 Discharge Planning - Discharge Planning Discharge Plan: Outpatient Follow Up Outpatient Program: [facility] Recommendations for Continuing Care: Medication Management, Substance Abuse Counseling Medications: Current Medications Acetaminophen (Tylenol Tab*) 650 mg PO Q4H PRN PRN Reason: for pain; or Temp >101 F Al Hydrox/Mg Hydrox/Simethicone (Maalox Plus*) 30 ml PO Q4H PRN PRN Reason: INDIGESTION Last Admin: 03/09/19 15:14 Dose: 30 ml Clonazepam (Klonopin Tab(*)) 0.5 mg PO BID PRN PRN Reason: ANXIETY Last Admin: 03/13/19 17:01 Dose: 0.5 mg Disulfiram (Antabuse Tab*) 500 mg PO DAILY [facility] Last Admin: 03/14/19 08:49 Dose: 500 mg Nicotine (Nicotine Patch 14 Mg/24 Hr*) 1 patch TRANSDERM 0900 [facility] Last Admin: 03/14/19 08:51 Dose: 1 patch Nicotine Polacrilex (Nicotine Gum*) 2 mg PO Q2H PRN PRN Reason: CRAVING Last Admin: 03/13/19 21:37 Dose: 2 mg Pantoprazole Sodium (Protonix Tab*) 40 mg PO DAILY [facility] Last Admin: 03/14/19 08:50 Dose: 40 mg Pharmacy Profile Note (Nicotine Patch Removal Note*) 1 note PATCH OFF 2100 [facility] Last Admin: 03/13/19 21:34 Dose: 1 note Quetiapine Fumarate (Seroquel Tab*) 200 mg PO BEDTIME [facility] Last Admin: 03/13/19 21:34 Dose: 200 mg Venlafaxine HCl (Effexor Xr Cap*) 150 mg PO DAILY [facility] Last Admin: 03/14/19 08:50 Dose: 150 mg Discharge Planning: Prescriptions provided for discharge [x] Yes [] No Follow up care details as per social work arrangements. Patient response to discharge plan: [x] eager for discharge [] agreeable with discharge plan [] ambivalent about discharge [] disagrees with discharge today
== END 2019-03-14 11:00 | disposition home or self-care (01) | DRG 775 ==
LOC: ED 18:14 → BSU 03-07 09:50
PROVIDERS: ADMIT Psychiatry & Neurology Psychiatry; ATTEND Psychiatry & Neurology Psychiatry
DX: F10.14 Alcohol abuse with alcohol-induced mood disorder (principal); R45.851 Suicidal ideations; F43.20 Adjustment disorder, unspecified; F32.9 Major depressive disorder, single episode, unspecified; Y90.7 Blood alcohol level of 200-239 mg/100 ml; F17.210 Nicotine dependence, cigarettes, uncomplicated; Z81.8 Family history of other mental and behavioral disorders
CPT/HCPCS: 36415; 70553; 80053; 80061; 80307; 80320; 80329; 81003; 82607; 83036; 84443; 85025; 86780; 93005; 95819; 96130; 99222; 99232; 99233; 99238; 99284; A9270-GY; A9579; G0480

== ENCOUNTER 2019-05-07 09:54 | Emergency (ER) | payer BC ==
--- OUTSIDE RECORDS SUMMARY | 2019-05-07 09:59 | XMS REPORT ---
:1975 Author Organization [facility] Care Team Providers Name Role Phone Eze Vidal Primary Care Physician Unavailable Allergies, Adverse Reactions, Alerts Allergy Code CodeSystem Reaction Severity Criticality Status Start Substance Date Moderate Medications Medication Medication Medication Start Stop Route Dose Status Fill Code CodeSystem Date Date Instructions RxNorm Problems Problem Name Code CodeSystem Alternate Alternate Start End Status Narrative Code CodeSystem Date Date Adjustment 74522769 SNOMED-CT 2018-04 Active disorder 2- with depressed mood Relevant diagnostic tests/laboratory data Narrative No Information Procedures Procedure Code CodeSystem Target Date of Status Service Device Device Device Name Site Procedure Delivery Code Name UID Location Psychother [id number] SNOMED-CT () 2019-03-27 completed Mental apy, 45 4 Health- minutes [facility] patient [address] [place], [place], [id number] SNOMED-CT () 2019-03-[address], [id number] SNOMED-CT () 2019-03-[address], [id number] Encounters/Encounter Diagnoses Encounter Name Encounter Diagnosis Diagnosis Diagnosis Date of Service Code Code Name CodeSystem Diagnosis Delivery Location Psychotherapy - 56835 [id number] Adjustment SNOMED-CT 2019-03-27 Behavioral Individual 30 disorder Health min with Clinic [address] [place], [place], [id number] Vital Signs No Information Social History Element Description Description Start End Code CodeSystem AdditionalInfo Date Date SexAssignedAtBirth Male 1975-0 M AdministrativeGender 11-05 Hospital Discharge Instructions Reason For Referral Medical Equipment FDA Assessments
--- OUTSIDE RECORDS SUMMARY | 2019-05-07 10:00 | XMS REPORT | Continuity of Care Document ---
:1975 External Reference #:[id number] Author Name Shahid Martines MD Address [address] [place] [address] Care Team Providers Name Role Phone Shahid Farris (Hellier - Direct) Care Team Information [employer] [phone] - Otolaryngology Shahid Martines MD - Family Care Team Information [employer] Medicine Problems Active Problems Provider Date Generalized [...] Qnty Indications Ordering Provider Date Duloxetine HCL one by mouth 60caps Shahid Gold 04/26/2019 20mg twice a day. MD Bobbi Caps DR Cherry Trazodone HCL 1 by mouth every 30tabs G47.00 Shahid Gold 03/22/2019 50mg night at bedtime MD Bobbi Tablets as needed insomnia Clonazepam 1 by mouth twice 60tabs F41.1 Shahid Gold 02/12/2017 0.5mg a day as needed MD Bobbi Tablets for anxiety Vireo Yellow 2.4mg THC/0.36mg F43.10 Unknown CBD oil History Medications Seroquel 1 tablet by mouth 30tabs G47.00 Ghazala Glenny 02/20/2019 - 50mg at night for sleep SUSAN Rossi 03/22/2019 Tablets Seroquel 1 tablet a night 30tabs G47.00 Ghazala Glenny 02/06/2019 - 25mg as needed for RossiSUSAN 02/20/2019 Tablets sleep Hydroxyzine HCL take 1/2-1 one 60tabs Ghazala Murrieta 01/20/2019 - tablet by mouth SUSAN Rossi 01/20/2019 25mg Tablets twice a day Venlafaxine HCL ER 3 caps daily for a 42caps F41.1 Shahid Gold 01/20/2019 - week, then 2 caps MD Bobbi 04/26/2019 37.5mg Caps ER 24HR daily for a week, then one cap daily for a week, then off. Duloxetine HCL one by mouth daily 60caps Shahid Gold 01/20/2019 - 20mg for 2 weeks MD Bobbi 02/06/[address] Part starting in the second week of taper, then one by mouth twice a day thereafter No Active Unknown 12/05/2018 - Medications 12/05/2018 Hydroxyzine HCL take 1/2-1 tablet 60tabs R07.9 Ghazala Murrieta 12/05/2018 - by mouth twice a SUSAN Rossi 12/20/2018 25mg Tablets day Venlafaxine HCL ER 1 by mouth every 30tabs F41.1 Marjorie Tovar, 11/04/2018 - day REPORT SPECIALIST 11/14/2018 150mg Tablets ER 24HR Immunizations CPT Code Status Date Vaccine Lot # [id number] Given 01/20/2019 Tdap Tetanus, W Pertussis [id number] Given 01/20/2019 Influenza Vac, Quadrivalent, Slit Virus, Im [id number] Given 03/16/2018 Influenza Vac, Quadrivalent, Slit Virus, Im Vital Signs Date Vital Result Comment 04/26/2019 6:27pm BP Systolic 118 mmHg BP Diastolic 86 mmHg Heart Rate 82 /min Body Temperature 98.2 F Respiratory Rate 16 /min Height 70 inches 5'10" Weight 161.00 lb BMI (Body Mass Index) 23.1 kg/m2 03/22/2019 8:03pm BP Systolic 120 mmHg BP Diastolic 88 mmHg Heart Rate 72 /min Body Temperature 98.1 F Respiratory Rate 16 /min Height 70 inches 5'10" Weight 161.00 lb BMI (Body Mass Index) 23.1 kg/m2 Results Test Acquired Date Facility Test Result H/L Range Note CBC Auto Diff 03/06/2019 [facility] [place] Blood 6.8 10^3/uL Normal 3.5-10.8 Count Red Blood Count 5.14 10^6/uL Normal 4.18-5.48 Hemoglobin 15.6 g/dL Normal 14.0-18.0 Hematocrit 45 % Normal 42-52 Mean Corpuscular Volume 88 fL Normal 80-94 Mean Corpuscular Hemoglobin 30 pg Normal 27-31 Mean Corpuscular HGB Conc 34 g/dL Normal 31-36 Red Cell Distribution Width 13 % Normal 10-15 Platelet Count 238 10^3/uL Normal 150-450 Mean Platelet Volume 7.0 fL Low 7.4-10.4 Abs Neutrophils 4.4 10^3/uL Normal 1.5-7.7 Abs Lymphocytes 1.7 10^3/uL Normal 1.0-4.8 Abs Monocytes 0.6 10^3/uL Normal 0-0.8 Abs Eosinophils 0.0 10^3/uL Normal 0-0.6 Abs Basophils 0.1 10^3/uL Normal 0-0.2 Abs Nucleated RBC 0.0 10^3/uL Granulocyte % 64.2 % Lymphocyte % 25.1 % Monocyte % 9.1 % Eosinophil % 0.5 % Basophil % 1.1 % Nucleated Red Blood Cells % 0.1 Comp Metabolic Panel 03/06/2019 [facility] [place] Sodium 141 mmol/L Normal 135-145 Potassium 3.4 mmol/L Low 3.5-5.0 Chloride 107 mmol/L Normal 101-111 Co2 Carbon Dioxide 23 mmol/L Normal 22-32 Anion Gap 11 mmol/L Normal 2-11 Glucose 94 mg/dL Normal 70-100 Blood Urea Nitrogen 10 mg/dL Normal 6-24 Creatinine 0.66 mg/dL Low 0.67-1.17 BUN/Creatinine Ratio 15.2 Normal 8-20 Calcium 8.6 mg/dL Normal 8.6-10.3 Total Protein 7.0 g/dL Normal 6.4-8.9 Albumin 4.4 g/dL Normal 3.2-5.2 Globulin 2.6 g/dL Normal 2-4 Albumin/Globulin Ratio 1.7 Normal 1-3 Total Bilirubin 0.50 mg/dL Normal 0.2-1.0 Alkaline Phosphatase 69 U/L Normal 34-104 Alt 18 U/L Normal 7-52 Ast 18 U/L Normal 13-39 Egfr Non- 132.4 >60 Egfr 160.2 >60 1 Laboratory test finding 03/06/2019 [facility] [place] 217 mg/dL High <10 Salicylate < 2.50 mg/dL <30 TSH (Thyroid Stim Horm) 1.20 mcIU/mL Normal 0.34-5.60 Acetaminophen < 15 g/mL 2 Urine Drug SCR ED 03/06/2019 [facility] [place]rine Amphetamine None Detected None Detect & Pain Clinic Screen Urine Barbiturates Screen None Detected None Detect Urine Benzodiazepine Screen None Detected None Detect Urine Cannabinoids Screen None Detected None Detect Urine Opiates Screen None Detected None Detect Urine Phencyclidine Screen None Detected None Detect 3 Urine Cocaine Screen None Detected None Detect Urinalysis Profile 03/06/2019 [facility] [place] Urine Color Straw Urine Appearance Clear Urine Specific Erwin 1.004 Low 1.010-1.030 Urine pH 6.0 Normal 5-9 Urine Urobilinogen Negative Negative Urine Ketones Negative Negative Urine Protein Negative Negative Urine Leukocytes Negative Negative Urine Blood Negative Negative Urine Nitrite Negative Negative Urine Bilirubin Negative Negative Urine Glucose Negative Negative Lipid Profile 01/20/2019 [facility]) Cholesterol 202 mg/dL High 120-200 Triglycerides 87 mg/dL 30-200 HDL Cholesterol 62 mg/dL 30-70 LDL (Calculated) 123 CALC 0-129 VLDL Cholesterol 17 mg/dL 0-50 HDL Risk Factor 3.3 CALC 0.0-4.4 Laboratory test 01/20/2019 [facility]) TSH 1.30 mIU/L 0.50-6.00 finding Laboratory test 12/04/2018 [facility] [place] Troponin I 0.00 ng/mL <0.04 4 finding CBC Auto Diff 12/04/2018 [facility] [place] White Blood 8.6 Normal 3.5-10.8 Count 10^3/uL [...] Red Blood Cells % 0.0 Inr/Protime 12/04/2018 [facility] [place] Inr 1.14 High 0.82-1.09 5 Laboratory test 12/04/2018 [facility] [place] Partial Thrombo 34.2 seconds Normal 26.0- 38.0 finding Time PTT Comp Metabolic Panel 12/04/2018 [facility] [place] Sodium 138 mmol/L Normal 135-145 Potassium 3.8 [...] Egfr Non- 98.8 >60 Egfr 119.6 >60 6 Laboratory test finding 12/04/2018 [facility] [place] Magnesium 2.2 mg/dL Normal 1.9- 2.7 Troponin I 0.00 ng/mL <0.04 7 Urine Drug SCR ED 12/04/2018 [facility] [place] Urine Amphetamine None Detected None Detect & Pain Clinic Screen Urine Barbiturates Screen None Detected None Detect Urine Benzodiazepine Screen None Detected None Detect Urine Cannabinoids Screen Presumptive Posi <SEE NOTE> Abnormal None Detect 8 Urine Cocaine Screen None Detected None Detect Urine Opiates Screen None Detected None Detect Urine Phencyclidine Screen None Detected None Detect 9 1 Because ethnic data is not always readily [...] 15-29 5 Kidney failure <15 (or dialysis) 2 Therapeutic concentration: <50 ug/mL Toxic concentration: >120 ug/mL 3 The urine specimen was tested at the listed cutoffs: Drug class test level (ng/mL) Amphetamines 500 Barbiturates 200 Benzodiazepine metabolites 200 Cocaine metabolites 150 Cannabinoids 50 Opiates 300 Pcp 25 Specimen was received without chain of custody. Results should be used for medical purposes only. 4 Troponin-I testing on Plasma Separator Tubes (PST) has a known false positive rate of 0.20-0.40%. All positive troponins reflex immediately to secondary confirmatory testing. Using the Octamer DxI 800 Access Immunoassay systems, the 99th percentile upper reference limit was demonstrated to be < 0.03 ng/mL. 5 Standard intensity warfarin therapeutic range: 2.0-3.0 High intensity warfarin therapeutic range: 2.5-3.5 6 Because ethnic data is not always readily [...] 15-29 5 Kidney failure <15 (or dialysis) 7 Troponin-I testing on Plasma Separator Tubes (PST) has a known false positive rate of 0.20-0.40%. All positive troponins reflex immediately to secondary confirmatory testing. Using the Octamer DxI 800 Access Immunoassay systems, the 99th percentile upper reference limit was demonstrated to be < 0.03 ng/mL. 8 Presumptive Positive Presumptive positive results are unconfirmed. 9 The urine specimen was tested at the listed cutoffs: Drug class test level (ng/mL) Amphetamines 500 Barbiturates 200 Benzodiazepine metabolites 200 Cocaine metabolites 150 Cannabinoids 50 Opiates 300 Pcp 25 Specimen was received without chain of custody. Results should be used for medical purposes only. Procedures Description No Information Available Medical Devices Description No Information Available Encounters Type Date Location Provider Dx Diagnosis Office Visit 03/22/2019 Main Office Shahid Gold F41.1 Generalized anxiety 8:00p MD Bobbi disorder Z63.79 Other stressful life events affecting family and household F10.21 Alcohol dependence, in remission Office Visit 02/22/2019 12:40p Main Office Shahid Gold F41.1 Generalized MD Bobbi anxiety disorder Z63.79 Other stressful life events affecting family and household G47.00 Insomnia, unspecified Office Visit 02/06/2019 2:00p Main Office Ghazala Murrieta F41.1 Generalized anxiety SUSAN Rossi disorder Z63.79 Other stressful life events affecting family and household Z56.5 Uncongenial work environment G47.00 Insomnia, unspecified Office Visit 01/20/2019 1:50p Main Office Shahid Gold Z00.00 Encntr for MD Bobbi general adult medical exam w/o abnormal findings F41.1 Generalized anxiety disorder Z63.79 Other stressful life events affecting family and household Z23 Encounter for immunization Office Visit 12/20/2018 10:00a Main Office Ghazala Murrieta F43.10 Post- traumatic stress Rossi, [employer] disorder, unspecified F41.1 Generalized anxiety disorder Z63.79 Other stressful life events affecting family and household Z56.5 Uncongenial work environment R10.32 Left lower quadrant pain 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 Office Visit 12/05/2018 2:00p Main Office Ghazala Murrieta F43.10 Post- traumatic stress Rossi, [employer] disorder, unspecified F41.1 Generalized anxiety disorder R07.9 Chest pain, unspecified Office Visit 11/15/2018 7:00p Main Office Ghazala Murrieta F43.10 Post- traumatic stress Rossi, [employer] disorder, unspecified F41.1 Generalized anxiety disorder F34.1 Dysthymic disorder K21.9 Gastro-esophageal reflux disease without esophagitis F10.21 Alcohol dependence, in remission Office Visit 11/04/2018 1:00p Main Office RENEE Nelson F41.1 Generalized anxiety disorder F34.1 Dysthymic disorder Assessments Date Code Description Provider 04/26/2019 F41.1 Generalized anxiety disorder Shahid Martines MD 04/26/2019 Z63.79 Other stressful life events affecting Shahid Martines MD family and household 04/26/2019 F10.21 Alcohol dependence, in remission Shahid Martines MD 04/26/2019 G47.00 Insomnia, unspecified Shahid Martines MD 03/22/2019 F41.1 Generalized anxiety disorder Shahid Martines MD 03/22/2019 Z63.79 Other stressful life events affecting Shahid Martines MD family and household 03/22/2019 F10.21 Alcohol dependence, in remission Shahid Martines MD 02/22/2019 F41.1 Generalized anxiety disorder Shahid Martines MD 02/22/2019 Z63.79 Other stressful life events affecting Shahid Martines MD family and household 02/22/2019 G47.00 Insomnia, unspecified Shahid Martines MD 02/06/2019 F41.1 Generalized anxiety disorder Ghazala Rossi NP 02/06/2019 Z63.79 Other stressful life events affecting Ghazala Rossi NP family and household 02/06/2019 Z56.5 Uncongenial work environment Ghazala Rossi NP 02/06/2019 G47.00 Insomnia, unspecified Ghazala Rossi, SUSAN 01/20/2019 Z00.00 Encounter for general adult medical Shahid Martines MD examination without abnormal findings 01/20/2019 F41.1 Generalized anxiety disorder Shahid Martines MD 01/20/2019 Z63.79 Other stressful life events affecting Shahid Martines MD family and household 01/20/2019 Z23 Encounter for immunization Shahid Martines MD 12/20/2018 F43.10 Post-traumatic stress disorder, Ghazala Rossi, SUSAN unspecified 12/20/2018 F41.1 Generalized anxiety disorder Ghazala Rossi NP 12/20/2018 Z63.79 Other stressful life events affecting Ghazala Rossi NP family and household 12/20/2018 Z56.5 Uncongenial work environment Ghazala Rossi NP 12/20/2018 R10.32 Left lower quadrant pain Ghazala Rossi NP 12/20/2018 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 Ghazala Rossi, SUSAN 12/05/2018 F43.10 Post-traumatic stress disorder, Ghazala Rossi, [employer] unspecified 12/05/2018 F41.1 Generalized anxiety disorder Ghazala Rossi NP 12/05/2018 R07.9 Chest pain, unspecified Ghazala Rossi, SUSAN 11/15/2018 F43.10 Post-traumatic stress disorder, Ghazala Rossi [employer] unspecified 11/15/2018 F41.1 Generalized anxiety disorder Ghazala Rossi NP 11/15/2018 F34.1 Dysthymic disorder Ghazala Rossi NP 11/15/2018 K21.9 Gastro-esophageal reflux disease without Ghazala Rossi NP esophagitis 11/15/2018 F10.21 Alcohol dependence, in remission Ghazala Rossi NP 11/04/2018 F41.1 Generalized anxiety disorder RENEE Nelson 11/04/2018 F34.1 Dysthymic disorder RENEE Nelson Plan of Treatment Future Appointment(s):07/21/2019 9:00 am - Shahid Martines MD at Main Zhbegd0804/26/2019 - Shahid Martines MDF41.1 Generalized anxiety disorderFollow up:2-3 nlyslxU27.79 Other stressful life events affecting family and boolpxnorL18.21 Alcohol dependence, in gtlanlwleP86.00 Insomnia, unspecifiedAllNew Medication:Duloxetine HCL 20 mg - one by mouth twice a day.Comments:Medication Management Patient Understands medications he's taking? Yes No Are there Barriersto Adherence? Yes No Has the patient been asked about herbal supplements and therapies, and OTC meds? Yes No Functional Status Description No Information Available Mental Status Description No Information Available Referrals Description No Information Available
--- OUTSIDE RECORDS SUMMARY | 2019-05-07 10:00 | XMS REPORT ---
:1975 Author Organization [facility] Care Team Providers Name Role Phone Eze Vidal Primary Care Physician Unavailable Allergies, Adverse Reactions, Alerts Allergy Code CodeSystem Reaction Severity Criticality Status Start Substance Date Moderate Medications Medication Medication Medication Start Stop Route Dose Status Fill Code CodeSystem Date Date Instructions RxNorm Problems Problem Name Code CodeSystem Alternate Alternate Start End Status Narrative Code CodeSystem Date Date Adjustment 08222614 SNOMED-CT 2018-04 Active disorder 2-05 with depressed mood Relevant diagnostic tests/laboratory data Narrative No Information Procedures Procedure Code CodeSystem Target Date of Status Service Device Device Device Name Site Procedure Delivery Code Name UID Location SNOMED-CT () 2019-03-[address], [id number] SNOMED-CT () 2019-03-[address], [id number] Encounters/Encounter Diagnoses Encounter Name Encounter Diagnosis Diagnosis Diagnosis Date of Service Code Code Name CodeSystem Diagnosis Delivery Location Psychotherapy [id number] Adjustment SNOMED-CT 2019-03-27 Behavioral Individual 30 disorder Health min with Clinic , , depressed , mood Vital Signs No Information Social History Element Description Description Start End Code CodeSystem AdditionalInfo Date Date SexAssignedAtBirth Male 1975-0 M AdministrativeGender 11-05 Hospital Discharge Instructions Reason For Referral Medical Equipment FDA Assessments
[2019-05-07 10:05] VITALS: BP 105/66
--- NOTE | 2019-05-07 10:20 | UC ---
FLU HPI - HPI Summary HPI Summary: 43-year-old male comes in with chief complaint of influenza-like illness. 2 days ago he started with a multitude of symptoms which was some runny nose sore throat and body aches chills and headache. He's taken dkdo-xil-diqylym medications which do help some with the symptoms. No nausea or vomiting no diarrhea. - History of Current Complaint Chief Complaint: UCGeneralIllness Stated Complaint: SORE THROAT Time Seen by Provider: 05/07/19 10:11 Pain Intensity: 0 - Allergy/Home Medications Allergies/Adverse Reactions: Allergies Allergy/AdvReac Type Severity Reaction Status Date / Time No Known Allergies Allergy Verified 05/07/19 10:05 Home Medications: Home Medications DULoxetine DR CAP* [Cymbalta CAP*] 20 mg PO BID 05/07/19 [History Confirmed ] Marijuna 1 mg INHH DAILY WITH MEAL 05/07/19 [History Confirmed 05/07/19] PMH/Surg Hx/FS Hx/Imm Hx Previously Healthy: Yes - Surgical History Surgical History: Yes Surgery Procedure, Year, and Place: tooth extraction one year ago in 2011; wisdom teeth (all 4) removed 15 years ago in 1995; hernia as a "baby". - Family History Known Family History: Positive: Other - depression, mental illness Negative: Cardiac Disease - Social History Alcohol Use: Rare Alcohol Amount: drank 6-7 beers/day for 15 yrs. now drinks 2-3 beers/day Substance Use Type: Marijuana Substance Use Comment - Amount & Last Used: 4 times a week medical Smoking Status (MU): Former Smoker - Immunization History Most Recent Influenza Vaccination: this year Most Recent Pneumonia Vaccination: unknown Review of Systems All Other Systems Reviewed And Are Negative: Yes Constitutional: Positive: Chills, Other - SEE HPI Skin: Positive: Negative Eyes: Positive: Negative ENT: Positive: Sore Throat, Nasal Discharge, Sinus Congestion Respiratory: Positive: Negative Cardiovascular: Positive: Negative Gastrointestinal: Positive: Negative Motor: Positive: Negative Neurovascular: Positive: Negative Musculoskeletal: Positive: Myalgia Neurological: Positive: Headache Psychological: Positive: Negative Is Patient Immunocompromised?: No Physical Exam Triage Information Reviewed: Yes Appearance: No Pain Distress, Well-Nourished, Ill-Appearing - MILD Vital Signs: Initial Vital Signs Temp 97.1 F 05/07/19 09:59 Pulse 76 05/07/19 09:59 Resp 18 05/07/19 09:59 BP 105/66 05/07/19 09:59 Pulse Ox 100 05/07/19 09:59 Vital Signs Reviewed: Yes Eye Exam: Normal Eyes: Positive: Conjunctiva Clear ENT: Positive: Pharyngeal erythema, Nasal congestion, Nasal drainage, TMs normal Neck: Positive: Supple Respiratory: Positive: Lungs clear, Normal breath sounds, No respiratory distress Cardiovascular: Positive: RRR Musculoskeletal: Positive: Strength Intact, ROM Intact Neurological: Positive: Alert, Muscle Tone Normal Psychological: Positive: Age Appropriate Behavior Skin Exam: Normal Flu Course/Dx - Course Course Of Treatment: DISCUSSED VIRAL VERSES BACTERIAL INFECTIONS AND THE ROLE OF ANTIBIOTICS. THE PATIENT PREFERS TO HAVE AN ABX RX TO USE IF NOT IMPROVING. - Differential Dx/Diagnosis Provider Diagnosis: Influenza-like illness, Pharyngitis Discharge ED - Sign-Out/Discharge Documenting (check all that apply): Patient Departure All imaging exams completed and their final reports reviewed: No Studies - Discharge Plan Condition: Stable Disposition: HOME Prescriptions: Amoxicillin PO (*) [Amoxicillin 500 MG CAP*] 500 mg PO TID #30 cap Patient Education Materials: Pharyngitis (ED) Referrals: Shahid Martines MD [Primary Care Provider] - Additional Instructions: FOLLOW UP WITH YOUR DOCTOR IF NOT COMPLETELY IMPROVED. GET REEVALUATED SOONER IF NOT IMPROVED OR WORSE OR ANY QUESTIONS OR CONCERNS. - Billing Disposition and Condition Condition: STABLE Disposition: Home
[2019-05-07 10:29] LABS: Influenza A Molecular NEGATIVE (Negative); Influenza B Molecular NEGATIVE (Negative)
== END 2019-05-07 11:00 | disposition home or self-care (01) ==
LOC: UCEAST 09:54
DX: J02.9 Acute pharyngitis, unspecified (principal); R09.81 Nasal congestion; R09.89 Other specified symptoms and signs involving the circulatory and respiratory systems; Z87.891 Personal history of nicotine dependence
CPT/HCPCS: 87651; 99212; G0463

== ENCOUNTER 2019-05-14 11:26 | Emergency (ER) | payer BC ==
[2019-05-14 11:55] VITALS: BP 94/61
--- NOTE | 2019-05-14 12:14 | UC ---
Throat Pain/Nasal Juvenal HPI - HPI Summary HPI Summary: Patient is a 43yo male presenting with chest congestion x1 day. Cough is nonproductive. Patient was seen here 2 days ago for sore throat, nasal congestion, and body aches. Was given prescription for amoxicillin to fill if symptoms not improving. Patient here today because he "wants to make sure he should take the antibiotic." Patient states sore throat and body aches resolved. Continues with nasal congestion and cough. States cough makes him short of breath. Denies difficulty breathing at rest or wheezing. Denies n/v. Denies fever and chills. Taking sudafed with little relief. Denies h/o asthma and copd. Nonsmoker. - History of Current Complaint Chief Complaint: UCGeneralIllness Stated Complaint: CHEST CONGESTION Hx Obtained From: Patient Pain Intensity: 0 - Allergies/Home Medications Allergies/Adverse Reactions: Allergies Allergy/AdvReac Type Severity Reaction Status Date / Time No Known Allergies Allergy Verified 05/14/19 11:55 PMH/Surg Hx/FS Hx/Imm Hx - Surgical History Surgical History: Yes Surgery Procedure, Year, and Place: tooth extraction one year ago in 2011; wisdom teeth (all 4) removed 15 years ago in 1995; hernia as a "baby". - Family History Known Family History: Positive: Other - depression, mental illness Negative: Cardiac Disease - Social History Alcohol Use: None Alcohol Amount: drank 6-7 beers/day for 15 yrs. now drinks 2-3 beers/day Substance Use Type: Marijuana Substance Use Comment - Amount & Last Used: 4 times a week medical Smoking Status (MU): Former Smoker - Immunization History Most Recent Influenza Vaccination: this year Most Recent Pneumonia Vaccination: unknown Review of Systems All Other Systems Reviewed And Are Negative: Yes Constitutional: Positive: Negative. Negative: Fever, Chills ENT: Positive: Sinus Congestion. Negative: Sore Throat Respiratory: Positive: Shortness Of Breath - with coughing/on exertion, Cough - nonproductive Cardiovascular: Positive: Negative Gastrointestinal: Positive: Negative. Negative: Vomiting, Nausea Musculoskeletal: Negative: Myalgia Neurological: Positive: Negative Physical Exam - Summary Physical Exam Summary: Vital Signs Reviewed: Yes A+Ox3, no distress, well-appearing Eyes: Conjunctiva Clear ENT: Hearing grossly normal TM x 2 clear, moist, uvula midline, no exudate, + pharyngeal erythema Neck: Positive: Supple Respiratory: Positive: No respiratory distress, No accessory muscle use + CTA throughout no w/r Cardiovascular: RRR nl s1, s2 no m/r Musculoskeletal Exam: HARRIS x 4 without difficulty Neurological: Positive: Alert Psychological: Positive: age appropriate behavior Skin: Positive: no rash, no ecchymosis Vital Signs: Initial Vital Signs Temp 99.3 F 05/14/19 11:50 Pulse 74 05/14/19 11:50 Resp 98 05/14/19 11:50 BP 94/61 05/14/19 11:50 Pulse Ox 98 05/14/19 11:50 Throat Pain/Nasal Course/Dx - Course Course Of Treatment: Discussed viral bronchitis with patient and instructed to continue with symptomatic treatment. I informed him that he should not take the amoxicillin that was sent to his pharmacy two days ago. I provided patient with albuterol inhaler and tessalon perles to help relieve symptoms. Instructed to increase fluids as well. Instructed to follow up with pcp if symptoms worsen or persist longer than 2-3 weeks. Patient voiced understanding and agreed with treatment plan. - Differential Dx/Diagnosis Provider Diagnosis: Viral URI, Acute bronchitis Discharge ED - Sign-Out/Discharge Documenting (check all that apply): Patient Departure All imaging exams completed and their final reports reviewed: No Studies - Discharge Plan Condition: Stable Disposition: HOME Prescriptions: Albuterol HFA INHALER* [Ventolin HFA Inhaler*] 1 - 2 puff INH Q6H PRN #1 mdi PRN Reason: Shortness Of Breath Benzonatate CAP* [Tessalon 100 MG CAP*] 100 mg PO TID PRN #21 cap PRN Reason: Cough Patient Education Materials: Acute Bronchitis (ED) Referrals: Shahid Martines MD [Primary Care Provider] - If Needed Additional Instructions: As discussed, your symptoms are caused by a virus. Viruses do not respond to antibiotic treatment. Continue with sudafed to help relieve congestion. You can also add nasal saline spray or Flonase. Use the inhaler as directed for shortness of breath. Take the tessalon perles for cough relief. A humidifer at night may also help alleviate symptoms. Get plenty of rest and increase your fluid intake. Follow up with your primary care provider if your symptoms worsen or do not resolve within 2-3 weeks. - Billing Disposition and Condition Condition: STABLE Disposition: Home
== END 2019-05-14 12:40 | disposition home or self-care (01) ==
LOC: UCEAST 11:26
DX: J06.9 Acute upper respiratory infection, unspecified (principal); J20.9 Acute bronchitis, unspecified; Z87.891 Personal history of nicotine dependence
CPT/HCPCS: 99212; G0463